=== PATIENT | female | born 1980 | race Caucasian/White ===

== ENCOUNTER 2022-11-11 20:18 | Emergency (ER) | payer OTHER, SELFPAY ==
[2022-11-11 20:30] VITALS: BP 120/63; PULSE 115; RESP 18; TEMP 36.1; O2SAT 97; BMI 22.3
--- NOTE | 2022-11-11 20:37 | ED_ITS ---
HPI - General Adult General Chief complaint: General Medical Stated complaint: L side body aches Time Seen by Provider: 11/11/22 23:50 Source: patient Mode of arrival: ambulatory Limitations: no limitations History of Present Illness HPI narrative: Patient with history of anxiety sciatica and with hospitalist for chronic left sciatica pain had lidocaine shot in the past been seen at [facility] 3 times in last 1 week comes as pain is there as medication which she taking no weakness now she is seeing numbness all over the body nonspecific complaints which is chronic, ambulatory in steady gait Related Data Previous Rx's Medication Instructions Recorded cyclobenzaprine 10 mg tablet 10 mg PO Q8H #20 tabs 11/12/22 Allergies Allergy/AdvReac Type Severity Reaction Status Date / Time No Known Allergies Allergy Verified 11/12/22 00:36 Review of Systems Review of Systems: Yes all other systems are reviewed and are negative [facility] Social History Social History Advance Directives: No Advance Directives Information Provided: Yes Physical Exam ED Vital Signs: Vital Signs - 24 hr 11/11/22 20:30 11/12/22 00:21 Temperature 97 F 97.6 F Pulse Rate 115 H 78 Respiratory Rate 18 16 Blood Pressure 120/63 113/70 Pulse Oximetry 97 99 Oxygen Delivery Method Room Air Room Air BMI result Body Mass Index 22.3 Appearance: Alert. Oriented X3. No acute distress. Anxious Eyes: PERRLA, ENT: Pharynx normal. Oral Mucosa moist Neck: Normal inspection. Neck supple. CVS: Normal heart rate and rhythm. Pulses normal. Respiratory: No respiratory distress. Equal air entry bilateral, Abdomen: Soft and nontender. Bowel sounds are present, Skin: Skin warm and dry. Normal skin color. Normal skin turgor. Extremities: No lower extremity edema. No calf tenderness back no focal midline spinal tenderness slight tenderness and left sciatic notch area SLR positive at 90 degrees on the left side no weakness Neuro: Oriented X 3. No motor deficit. No sensory deficit.No cerebellar signs , cranial nerves II-XII intact Course Course Course Narrative: RME- 42-year-old female presents for evaluation of left lower back/hip pain that radiates into her left upper leg. She describes cramping and burning pain. She reports that she has been to 3 hospitals already for this complaint. She has had x-rays done of the left hip. Medications Administered Discontinued Medications Generic Name Dose Route Start Last Admin Trade Name Ana PRN Reason Stop Dose Admin Clonazepam 1 mg 11/12/22 00:36 11/12/22 01:16 Clonazepam 1 Mg Tablet PO 11/12/22 00:37 1 mg ONCE ONE Administration Cyclobenzaprine HCl 10 mg 11/12/22 00:38 11/12/22 01:17 Cyclobenzaprine Hcl 10 Mg Tablet PO 11/12/22 00:39 10 mg ONCE ONE Administration Medical Decision Making Medical Decision Making [facility] Narrative: Patient on chronic left sciatica with no focal deficit no dermatomal sensory loss no signs of spinal cord injury patient ambulating steady gait pain seen another facility 3 times this week will give patient Flexeril and discharge patient home advised to continue her medication Discharge Plan Discharge Clinical Impression: Left sciatic nerve pain Patient Disposition: Home, Self-Care Instructions: Sciatica (ED) Additional Instructions: Continue medication including gabapentin and Klonopin Follow-up with the psychiatrist and make appoint with pain clinic if pain continue Take muscle relaxants as prescribed Contin?e con la medicaci?n que incluye gabapentina y Klonopin Shonda un seguimiento con el psiquiatra y programe malloire clara con la cl?elina del dolor si el dolor contin?a. [place] relajantes musculares seg?n lo prescrito Prescriptions: New cyclobenzaprine 10 mg tablet 10 mg PO Q8H Qty: 20 0RF Interventions: ED Discharge Assessment Last Done: 11/12/22 01:23 Discharge Date/Time: 11/12/22 01:23 Print Language: Sinhala
--- OUTSIDE RECORDS SUMMARY | 2022-11-11 23:55 | XMS_ITS | Continuity of Care Document ---
Author Name Unknown Organization [facility] Address [address] [place] [address]- Care Team Providers Care Beef Killer Name Role Phone Jonny BAUTISTA, Che Primary Care Physician [phone] [facility] 08[facility]16[facility] - 09/15/19 [facility]/[address] [address]- [facility] Attending Physician: Not on Staff, Attending MD Allergies, Adverse Reactions, Alerts No Known Medication Allergies Immunizations Given and Recorded Vaccine Date Status Refusal Reason influenza virus vaccine, inactivated 04/13/18 Give n influenza virus vaccine, inactivated 04/10/17 Give n influenza virus vaccine, inactivated 04/15/16 Give n influenza virus vaccine, inactivated 1 04/27/12 Gi ana lilia hepatitis B adult vaccine 2 09/05/13 Given hepatitis B adult vaccine 3 04/27/12 Given Hepatitis A Adult Vaccine 4 09/05/13 Given Hepatitis A Adult Vaccine 5 12/19/11 Given tetanus/diphtheria/pertussis, acel(Tdap) 04/27/12 Given tetanus-diphtheria toxoids (Td) 6 05/07/06 Given 1Admin Note: VIS11/24/2011 2Result Comment: [09/05/2013] ORDERED BY RISSA MASON MD 3Admin Note: VIS 06/26/2011 4Result Comment: [09/05/2013] ORDERED BY RISSA MASON MD [facility] 5Admin Note: GIVEN VIS 07/15/05 6Admin Note: VIS Medications cholestyramine 4 g/5.5 g oral powder for reconstitution = 4 Gm, By Mouth, 2 times a day, dissolve in water or juice- nauruan, # 60 each, 3 Refills, Maintenance, 03/02/19 9:35:40 EDT, REC Powder Start Date: 03/02/19 Status: Ordered clonazePAM 1 mg oral tablet 1 tablet = 1 mg, By Mouth, 3 times a day, 0 Refills, Maintenance, 11/29/15 16:34:56 Start Date: 11/29/15 Status: Ordered escitalopram 20 mg oral tablet 1 tablet = 20 mg, By Mouth, Daily, # 30 tablet, 0 Refills, Maintenance, 07/01/16 12:29:16, Tablet Start Date: 07/01/16 Status: Ordered gabapentin 400 mg oral capsule 400 mg, 1, capsule, By Mouth, 2 times a day, PRN back pain. To replace cyclobenzaprine., # 60 capsule, Refills 0, Tot. Refills 0, Maintenance, 08/17/19 11:33:00 EDT, Route to Pharmacy Electronically,[facility]/pharmacy #[id number], 168, cm, 06/28/19 9:52:00 EST,... Start Date: 08/17/19 Status: Ordered LaMICtal 25 mg oral tablet See Instructions, 1 tab By Mouth tab daily x 2 wks,then 25mg bid x 1wk, then 25/50mg x1wek, then 50mg bid, # 120 Doses, Refills 5, Tot. Refills 5, Maintenance, 09/02/18 14:39:28 EDT, Instructions Replace Required Details, Route to Pharmacy Electr... Start Date: 09/02/18 Status: Ordered Latuda 40 mg oral tablet 1 tablet = 40 mg, By Mouth, Daily at bedtime, # 30 tablet, 0 Refills, Maintenance, 07/01/16 12:28:47, Tablet Start Date: 07/01/16 Status: Ordered lidocaine 5% topical ointment 1 application, Topically, 2 times a day, For trigeminal neuralgia. Apply small amount, avoid contact with eyes. Span, # 50 Gm, 0 Refills, Maintenance, 07/15/18 10:28:42 EST, Ointment, 1 application Topically 2 times a day,Instr:For trigeminal neuralgi... Start Date: 07/15/18 Status: Ordered loperamide 2 mg oral capsule See Instructions, Take 1 capsule By Mouth 2 hrs before meals as needed for diarrhea. Chinese., # 100 capsule, Refills 0, Tot. Refills 0, Maintenance, 04/13/18 10:22:05 EST, Instructions Replace Required Details, Route to Pharmacy Electronically, [id number]... Start Date: 04/13/18 Status: Ordered meloxicam 7.5 mg oral tablet 1 tablet = 7.5 mg, By Mouth, Daily, # 30 tablet, 1 Refills, Maintenance, 06/28/19 10:23:00 EST, Tablet, [facility]/pharmacy #[id number], 168, cm, 06/28/19 9:52:00 EST, Height, 75, kg, 06/28/19 9:52:00 EST, Dry Weight Start Date: 06/28/19 Status: Ordered omeprazole 20 mg oral enteric coated capsule 1 capsule = 20 mg, By Mouth, Daily, Take one capsule daily 30 mins before breakfast. Chinese., # 30capsule, 3 Refills, Maintenance, 03/02/19 9:38:05 EDT, EC Capsule Start Date: 03/02/19 Stop Date: 06/30/19 Status: Ordered omeprazole 20 mg oral enteric coated capsule 1 capsule = 20 mg, By Mouth, 2 times a day, To replace tablet, # 28 capsule, 0 Refills, Maintenance, 06/23/19 17:47:00 EST, [facility], 168, cm, 03/02/19 9:08:00 EDT, Height Start Date: 06/23/19 Stop Date: 07/07/19 Status: Ordered prazosin 1 mg oral capsule Refills 0, Maintenance, 02/11/18 10:22:35 EDT Start Date: 02/11/18 Status: Ordered Problem List Condition Effective Dates Status Health Status Inform ant Abdominal pain(Confirmed) Active Allergic rhinitis(Confirmed) Active Cholecystectomy(Confirmed) Active Cholelithiasis(Confirmed) Active Chronic facial pain(Confirmed) Active Chronic female pelvic pain(Confirmed) Active Cigarette smoker(Confirmed) Active Depression(Confirmed) Active Cervical dysplasia(Confirmed) Active Esophageal reflux (GERD)(Confirmed) Active Hepatitis C antibody test po sitive, viral load negative(Confirmed) 1, 2 Active Jaw pain(Confirmed) Active Joint pain(Confirmed) Active Low back pain(Confirmed) Active Opioid dependence(Confirmed) Active Patient on methadone mainten ance therapy(Confirmed) 3 Active Psoriasis of scalp(Confirmed) Active Severe obesity(Confirmed) Active Fatty liver(Confirmed) Active Trigeminal neuralgia of left side of face(Confirmed) Active Vitiligo(Confirmed) Active 1Neg Hep C RNA 01/04/18 2with negative pcr 3stopped december, Social History Social History Type Response Smoking Status 5-9 cigarettes (betw een 1/4 to 1/2 pack)/day in last 30 days; Type: Cigarettes; Tobacco use times per day: 5-9 cigs a day; Started at age: 10; entered on: 06/28/19 Sex
--- OUTSIDE RECORDS SUMMARY | 2022-11-11 23:55 | XMS_ITS | Continuity of Care Document ---
Author Name Unknown Organization [facility] Address [address] [place] [address]- Care Team Providers Care Senior Mechanical Technician Name Role Phone Jonny BAUTISTA, Che Primary Care Physician [phone] [facility]): 11/13/20 - 12/13/20 [facility] [address] [place] [address]- Attending Physician: Admtr, Ar8 Allergies, Adverse Reactions, Alerts No Known Medication Allergies Immunizations Given and Recorded Vaccine Date Status Refusal Reason SARS-CoV-2 (COVID-19) mRNA BNT-162b2 vac 11/13/20 Given SARS-CoV-2 (COVID-19) mRNA BNT-162b2 vac 10/23/20 Given influenza virus vaccine, inactivated 04/13/18 Give n [...] Comment: [09/05/2013] ORDERED BY RISSA MASON MD [facility] 5Admin Note: GIVEN VIS 02/21/06 6Admin Note: VIS Medications clonazePAM 1 mg oral tablet 1 TABLET BY MOUTH THREE TIMES A DAY NEEDED Start Date: 09/18/20 Status: Ordered docusate sodium 100 mg oral capsule 1 capsule = 100 mg, By Mouth, 2 times a day, PRN for constipation, Take daily for constipation Malawian, # 60 capsule, 2 Refills, Maintenance, 05/08/20 16:23:00 EST, Capsule, [facility], Partial fill upon patient request if the prescription i... Start Date: 05/08/20 Status: Ordered ferrous gluconate 324 mg (37.5 mg elemental iron) oral tablet 1 tablet = 324 mg, By Mouth, 2 times a day, For anemia. Take with food. Malawian., # 100 tablet, 2 Refills, Maintenance, 03/02/20 16:57:00 EDT, Tablet, [facility], 168, cm, 11/30/19 15:43:00 EDT, Height, 75, kg, 06/28/19 9:52:00 EST, Dry We... Start Date: 03/02/20 Status: Ordered FLUoxetine 20 mg oral capsule TOME 2 C PSULAS POR V A ORAL CADA MA RAJIV Start Date: 09/18/20 Status: Ordered gabapentin 600 mg oral tablet 1 tablet = 600 mg, By Mouth, 2 times a day, For leg and back pain. May cause drowsiness. Malawian., # 60 tablet, 2 Refills, Maintenance, 08/15/20 13:50:00 EDT, [facility], Partial fill upon patient request if the prescription is for a schedule... Start Date: 08/15/20 Status: Ordered Latuda 40 mg oral tablet TOME DAVID TABLETA POR V A ORAL CADA NOCHE Start Date: 09/18/20 Status: Ordered lidocaine 5% topical film 1 patch, Topically, Daily, PRN Pain , Mild, For low back pain. Do not leave on for more than 12 hrsSpanish, # 30 patch, 0 Refills, Maintenance, 09/18/20 15:39:00 EDT, Film, [facility], Partial fill upon patient request if the prescription is... Start Date: 09/18/20 Status: Ordered meloxicam 7.5 mg oral tablet 1 tablet = 7.5 mg, By Mouth, Daily, # 30 tablet, 1 Refills, Maintenance, 06/28/19 10:23:00 EST, Tablet, [facility], 168, cm, 06/28/19 9:52:00 EST, Height, 75, kg, 06/28/19 9:52:00 EST, Dry Weight Start Date: 06/28/19 Status: Ordered MiraLax oral powder for reconstitution = 17 Gm, By Mouth, Daily, PRN constipation. dissolve in water before taking Malawian, # 527 Gm, 1 Refills, Maintenance, 05/08/20 16:24:00 EST, REC Powder, [facility], Partial fill upon patientrequest if the prescription is for a schedule II o... Start Date: 05/08/20 Status: Ordered omeprazole 20 mg oral enteric coated capsule 1 capsule = 20 mg, By Mouth, 2 times a day, To replace tablet, # 28 capsule, 0 Refills, Maintenance, 06/23/19 17:47:00 EST, [facility], 168, cm, 03/02/19 9:08:00 EDT, Height Start Date: 06/23/19 Stop Date: 07/07/19 Status: Ordered prazosin 1 mg oral capsule TOME 1 C PSULA POR V A ORAL AL ACOSTARSE Start Date: 09/18/20 Status: Ordered Problem List Condition Effective Dates [...]
--- OUTSIDE RECORDS SUMMARY | 2022-11-11 23:55 | XMS_ITS | Continuity of Care Document ---
Author Name Unknown Organization [facility] Address [address] [place] [address]- Care Team Providers Care Safety Physician Name Role Phone Jonny TECHNICAL SME, Che Primary Care Physician [phone] [facility] 03/02/20 - 04/01/20 [facility] [address] [place] [address]- Allergies, Adverse Reactions, Alerts No Known Medication [...] Comment: [09/05/2013] ORDERED BY RISSA MASON MD [facility] [place] [facility] 5Admin Note: GIVEN VIS 07/15/05 6Admin Note: VIS Medications cholestyramine 4 g/5.5 g oral powder for reconstitution = 4 Gm, By Mouth, 2 times a day, dissolve in water or juice- danish, # 60 each, 3 Refills, Maintenance, 03/02/19 [...] 12:29:16, Tablet Start Date: 07/01/16 Status: Ordered ferrous gluconate 324 mg (37.5 mg elemental iron) oral tablet 1 tablet = 324 mg, By Mouth, 2 times a day, For anemia. Take with food. Cypriot., # 100 tablet, 2 Refills, Maintenance, 03/02/20 16:57:00 EDT, Tablet, [facility]/pharmacy #1972, 168, cm, 11/30/19 15:43:00 EDT, Height, 75, kg, 06/28/19 9:52:00 EST, Dry We... Start Date: 03/02/20 Status: Ordered gabapentin 400 mg oral capsule 400 mg, 1, capsule, By Mouth, 2 times a day, PRN back pain. Cypriot., # 60 capsule, Refills 0, Tot.Refills 0, Maintenance, 02/22/20 14:44:00 EDT, Route to Pharmacy Electronically, [facility]/pharmacy #1972, 168, cm, 11/30/19 15:43:00 EDT, Height, 75, kg, 02... Start Date: 02/22/20 Status: Ordered LaMICtal 25 mg oral tablet [...] hrs before meals as needed for diarrhea. Cypriot., # 100 capsule, Refills 0, Tot. Refills 0, Maintenance, 04/13/18 10:22:05 EST, Instructions Replace Required Details, Route to Pharmacy Electronically, [id number]... Start Date: 04/13/18 Status: Ordered meloxicam 7.5 mg oral tablet 1 tablet = 7.5 mg, By Mouth, Daily, # 30 tablet, 1 Refills, Maintenance, 06/28/19 10:23:00 EST, Tablet, [facility]/pharmacy #1972, 168, cm, 06/28/19 9:52:00 EST, Height, 75, kg, 06/28/19 9:52:00 EST, Dry Weight Start Date: 06/28/19 Status: Ordered omeprazole 20 mg oral enteric coated capsule 1 capsule = 20 mg, By Mouth, Daily, Take one capsule daily 30 mins before breakfast. Cypriot., # 30capsule, 3 Refills, Maintenance, 03/02/19 9:38:05 [...]
--- OUTSIDE RECORDS SUMMARY | 2022-11-11 23:55 | XMS_ITS | Continuity of Care Document ---
Author Name Unknown Organization [facility] Address [address] [place] [address]- Care Team Providers Care Location Manager Name Role Phone Jonny BAUTISTA, Che Primary Care Physician [phone] [facility] 06[facility]07[facility]20 - 08/04/[address] [address] Attending Physician: Che Fuller NP Admitting Physician: Che Fuller NP Referring Physician: Che Fuller NP Allergies, Adverse Reactions, Alerts No Known Medication [...] Comment: [09/05/2013] ORDERED BY RISSA MASON MD [facility] 5Admin Note: GIVEN VIS 07/15/05 6Admin Note: VIS Medications clonazePAM 1 mg oral tablet 1 tablet = 1 mg, By Mouth, 3 times a day, 0 Refills, Maintenance, 11/29/15 16:34:56 Start Date: 11/29/15 Status: Ordered docusate sodium 100 mg oral capsule 1 capsule = 100 mg, By Mouth, 2 times a day, PRN for constipation, Take daily for constipation Botswanan, # 60 capsule, 2 Refills, Maintenance, 05/08/20 16:23:00 EST, Capsule, [facility]/pharmacy #1972, Partial fill upon patient request if the prescription i... Start Date: 05/08/20 Status: Ordered escitalopram 20 mg oral tablet 1 tablet = 20 mg, By Mouth, Daily, # 30 tablet, 0 Refills, Maintenance, 07/01/16 12:29:16, Tablet Start Date: 07/01/16 Status: Ordered ferrous gluconate 324 mg (37.5 mg elemental iron) oral tablet 1 tablet = 324 mg, By Mouth, 2 times a day, For anemia. Take with food. Botswanan., # 100 tablet, 2 Refills, Maintenance, 03/02/20 16:57:00 EDT, Tablet, [facility]/pharmacy #1972, 168, cm, 11/30/19 15:43:00 EDT, Height, 75, kg, 06/28/19 9:52:00 EST, Dry We... Start Date: 03/02/20 Status: Ordered gabapentin 600 mg oral tablet 1 tablet = 600 mg, By Mouth, 2 times a day, Increase in dose. For leg and back pain. May cause drowsiness. Botswanan., # 60 tablet, 2 Refills, Maintenance, 05/08/20 16:26:00 EST, [facility]/pharmacy #1972, Partial fill upon patient request if the prescription... Start Date: 05/08/20 Status: Ordered LaMICtal 25 mg oral tablet [...] hrs before meals as needed for diarrhea. Botswanan., # 100 capsule, Refills 0, Tot. Refills 0, Maintenance, 04/13/18 10:22:05 EST, Instructions Replace Required Details, Route to Pharmacy Electronically, [id number]... Start Date: 04/13/18 Status: Ordered meloxicam 7.5 mg oral tablet 1 tablet = 7.5 mg, By Mouth, Daily, # 30 tablet, 1 Refills, Maintenance, 06/28/19 10:23:00 EST, Tablet, [facility]/pharmacy #1972, 168, cm, 06/28/19 9:52:00 EST, Height, 75, kg, 06/28/19 9:52:00 EST, Dry Weight Start Date: 06/28/19 Status: Ordered MiraLax oral powder for reconstitution = 17 Gm, By Mouth, Daily, PRN constipation. dissolve in water before taking Botswanan, # 527 Gm, 1 Refills, Maintenance, 05/08/20 16:24:00 EST, REC Powder, [facility], Partial fill upon patientrequest if the prescription is for a schedule II o... Start Date: 05/08/20 Status: Ordered omeprazole 20 mg oral enteric coated capsule 1 capsule = 20 mg, By Mouth, Daily, Take one capsule daily 30 mins before breakfast. Botswanan., # 30capsule, 3 Refills, Maintenance, 03/02/19 9:38:05 [...] 10:22:35 EDT Start Date: 02/11/18 Status: Ordered Senna 8.6 mg oral tablet 17.2 mg, 2, tablet, By Mouth, Daily at bedtime, Take daily for constipation. Botswanan. for 30 days, # 60 tablet, Refills 2, Tot. Refills 2, Acute, 08/06/20 16:24:00 EDT, 05/08/20 16:24:00 EST, Route to Pharmacy Electronically, [facility]/pharmacy #1972 Tabl... Start Date: 05/08/20 Stop Date: 08/06/20 Status: Ordered Problem List Condition Effective Dates [...]
--- OUTSIDE RECORDS SUMMARY | 2022-11-11 23:55 | XMS_ITS | Continuity of Care Document ---
Author Name Unknown Organization [facility] Address [address] [place] [address]- Care Team Providers Care Driving Instructor Name Role Phone Jonny PAYABLE PROCESSOR, Che Primary Care Physician [phone] [facility]): 08/15/20 - 09/14/20 [facility] [address] [place] [address]- Allergies, Adverse Reactions, Alerts No Known Medication [...] Comment: [09/05/2013] ORDERED BY RISSA MASON MD [facility] 5Admin Note: GIVEN VIS 07/15/05 6Admin Note: VIS Medications clonazePAM 1 mg oral tablet 1 tablet = 1 mg, By Mouth, 3 times a day, 0 Refills, Maintenance, 11/29/15 16:34:56 Start Date: 11/29/15 Status: Ordered docusate sodium 100 mg oral capsule 1 capsule = 100 mg, By Mouth, 2 times a day, PRN for constipation, Take daily for constipation Turkmen, # 60 capsule, 2 Refills, Maintenance, 05/08/20 16:23:00 EST, Capsule, [facility]/pharmacy #1972, Partial fill upon patient request if [...] a day, For anemia. Take with food. Turkmen., # 100 tablet, 2 Refills, Maintenance, 03/02/20 16:57:00 EDT, Tablet, [facility], 168, cm, 11/30/19 15:43:00 EDT, Height, 75, kg, 06/28/19 9:52:00 EST, Dry We... Start Date: 03/02/20 Status: Ordered gabapentin 600 mg oral tablet 1 tablet = 600 mg, By Mouth, 2 times a day, Increase in dose. For leg and back pain. May cause drowsiness. Turkmen., # 60 tablet, 2 Refills, Maintenance, 05/08/20 16:26:00 EST, [facility], Partial fill upon patient request if the prescription... Start Date: 05/08/20 Status: Ordered gabapentin 600 mg oral tablet 1 tablet = 600 mg, By Mouth, 2 times a day, For leg and back pain. May cause drowsiness. Turkmen., # 60 tablet, 2 Refills, Maintenance, 08/15/20 13:50:00 EDT, [facility], Partial fill upon patient request if the prescription is for a schedule... Start Date: 08/15/20 Status: Ordered LaMICtal 25 mg oral tablet [...] hrs before meals as needed for diarrhea. Turkmen., # 100 capsule, Refills 0, Tot. Refills 0, Maintenance, 04/13/18 10:22:05 EST, Instructions Replace Required Details, Route to Pharmacy Electronically, [id number]... Start Date: 04/13/18 Status: Ordered meloxicam 7.5 mg oral tablet 1 tablet = 7.5 mg, By Mouth, Daily, # 30 tablet, 1 Refills, Maintenance, 06/28/19 10:23:00 EST, Tablet, [facility]/pharmacy #1972, 168, cm, 06/28/19 9:52:00 EST, Height, 75, kg, 06/28/19 9:52:00 EST, Dry Weight Start Date: 06/28/19 Status: Ordered MiraLax oral powder for reconstitution = 17 Gm, By Mouth, Daily, PRN constipation. dissolve in water before taking Turkmen, # 527 Gm, 1 Refills, Maintenance, 05/08/20 16:24:00 EST, REC Powder, [facility]/pharmacy #1972, Partial fill upon patientrequest if the prescription is for a schedule II o... Start Date: 05/08/20 Status: Ordered omeprazole 20 mg oral enteric coated capsule 1 capsule = 20 mg, By Mouth, Daily, Take one capsule daily 30 mins before breakfast. Turkmen., # 30capsule, 3 Refills, Maintenance, 03/02/19 9:38:05 EDT, EC Capsule Start Date: 03/02/19 Stop Date: 06/30/19 Status: Ordered omeprazole 20 mg oral enteric coated capsule 1 capsule = 20 mg, By Mouth, 2 times a day, To replace tablet, # 28 capsule, 0 Refills, Maintenance, 06/23/19 17:47:00 EST, [facility]/pharmacy #1972, 168, cm, 03/02/19 9:08:00 EDT, Height [...]
--- OUTSIDE RECORDS SUMMARY | 2022-11-11 23:55 | XMS_ITS | Continuity of Care Document ---
Author Name Unknown Organization [facility] Address [address] [place] [address]- Care Team Providers Care Product Lead Name Role Phone Jonny BAUTISTA, Che Primary Care Physician [place] [facility] [place] - 11/08/22 [facility]/[place] [address]- [place] Allergies, Adverse Reactions, Alerts No Known Medication Allergies Immunizations Given and Recorded Vaccine Date Status Refusal Reason tetanus/diphtheria/pertussis, acel(Tdap) 08/28/21 Given tetanus/diphtheria/pertussis, acel(Tdap) 04/27/12 Given SARS-CoV-2 (COVID-19) mRNA BNT-162b2 vac 07/02/21 Recorded SARS-CoV-2 (COVID-19) mRNA BNT-162b2 vac 11/13/20 Given [...] Hepatitis A Adult Vaccine 5 12/19/11 Given tetanus-diphtheria toxoids (Td) 6 05/07/06 Given 1Admin Note: VIS11/24/2011 2Result Comment: [09/05/2013] ORDERED BY RISSA MASON MD 3Admin Note: VIS 06/26/2011 4Result Comment: [09/05/2013] ORDERED BY RISSA MASON MD [facility] 5Admin Note: GIVEN VIS 07/15/05 6Admin Note: VIS Medications clonazePAM 1 mg oral tablet Per Psych Dr Christy Start Date: 07/24/22 Status: Ordered docusate sodium 100 mg oral capsule 1 capsule = 100 mg, By Mouth, 2 times a day, PRN for constipation, Take daily for constipation Mauritanian, # 180 capsule, 1 Refills, Maintenance, 10/17/22 16:51:00 EDT, Capsule, [facility]/pharmacy #1972, Partial fill upon patient request if the prescription... Start Date: 10/17/22 Status: Ordered ferrous gluconate 324 mg (37.5 mg elemental iron) oral tablet 1 tablet = 324 mg, By Mouth, 2 times a day, For anemia. Take with food. Mauritanian., # 100 tablet, 2 Refills, Maintenance, 03/02/20 16:57:00 EDT, Tablet, [facility]/pharmacy #1972, 168, cm, 11/30/19 15:43:00 EDT, Height, 75, kg, 06/28/19 9:52:00 EST, Dry We... Start Date: 03/02/20 Status: Ordered FLUoxetine 40 mg oral capsule Per Psych Dr Christy Start Date: 07/24/22 Status: Ordered gabapentin 600 mg oral tablet 1 tablet, By Mouth, 2 times a day, CUANDO SEA NECESARIO FOR LOW BACK PAIN AND LEFT LEG PAIN DO NOT DRIVE AFTER TAKING., # 60 tablet, 0 Refills, Maintenance, 10/14/22 7:33:00 EDT, [facility], covering for PCP, 168, cm, 07/24/22 14:0... Start Date: 10/14/22 Status: Ordered GaviLAX oral powder for reconstitution = 17 Gm, By Mouth, Daily, PRN NEEDED FOR CONSTIPATION, # 510 Gm, 5 Refills, Maintenance, 11/07/22 9:58:00 EDT, [facility] STORE [id number], 30, DISSOLVE IN WATER 17GRAMS AND TAKE BY MOUTH DAILY NEEDED FOR CONSTIPATION, 168, cm, 10/16/22 14:37:00 EDT, Height Start Date: 11/07/22 Status: Ordered Latuda 60 mg oral tablet Per Psych Dr Christy Start Date: 07/24/22 Status: Ordered lidocaine 5% topical film See Instructions, APLIQUE AL AREA AFECTADA A DIARIO CUANDO SEA NECESARIO PARA EL DOLOR NO DEJAR ENCENDIDO MAS DE 12 HORAS, # 30 patch, 11 Refills, Maintenance, 10/02/22 8:13:00 EDT, [facility] STORE [id number], 30, APLIQUE AL AREA AFECTADA A DIARIO CUANDO SEA NEC... Start Date: 10/02/22 Status: Ordered omeprazole 20 mg oral enteric coated capsule 1 capsule = 20 mg, By Mouth, 2 times a day, # 180 capsule, 0 Refills, Maintenance, 10/07/22 13:10:00 EDT, [facility]/pharmacy #1972, 168, cm, 07/24/22 14:05:00 EST, Height Start Date: 10/07/22 Status: Ordered prazosin 1 mg oral capsule Per Psych Dr Christy Start Date: 07/24/22 Status: Ordered Readi-Cat 2 oral suspension 450 mL = 9 Gm, By Mouth, 2 times a day, Mauritanian Please dispense two 450 mL bottles for a total dosethat equals 900 mLs. Drink first bottle [address] and then drink second bottle [address] scan, # 2 each, 0 Refills, Maintenance, 07/24/22... Start Date: 07/24/22 Status: Ordered Problem List Condition Confirmation Course Effective Dates Status H ealth Status Informant Abdominal pain Confirmed Active Allergic rhinitis Confirmed Active KAYLEE III (cervical intraepithelial neoplasia III) Confirmed Active Cholecystectomy Confirmed Active Cholelithiasis Confirmed Active Chronic facial pain Confirmed Active Chronic female pelvic pain Confirmed Active Cigarette smoker Confirmed Active Depression Confirmed Active Cervical dysplasia Confirmed Active Esophageal reflux (GERD) Confirmed Active Greater trochanteric bursitis of left hip Confirmed Active Hepatitis C antibody test positive, viral load negative 1, 2 Confirmed Active Jaw pain Confirmed Active Joint pain Confirmed Active Low back pain Confirmed Active Lumbar back pain with radiculopathy affecting left lower extremity Confirmed Active Opioid dependence Confirmed Active Patient on methadone maintenance therapy 3 Confirmed Active Psoriasis of scalp Confirmed Active Severe obesity Confirmed Active Fatty liver Confirmed Active Trigeminal neuralgia of left side of face Confirmed Active Vitiligo Confirmed Active 1Neg Hep C RNA 01/04/18 2with negative pcr 3stopped december, Social History Social History Type Response Smoking Status 5-9 cigarettes (betw een 1/4 to 1/2 pack)/day in last 30 days; Type: Cigarettes; Tobacco use times per day: 5-9 cigs a day; Started at age: 10; entered on: 10/16/22 Sex Patient Care team information Care Team Personnel Name: Che Fuller NP Position: S PCO Associate Professional Member Role: PCP Address: Address: [address] [place] [address]- Care Team Related Persons Name: THUY CARNES Address: home [address] [place] [address] Name: TEMI MCCLELLAN Address: home [address] [place] [address] Name: CARISSA SHOOK Address: [place] [address]
--- OUTSIDE RECORDS SUMMARY | 2022-11-11 23:55 | XMS_ITS | Continuity of Care Document ---
Author Name Unknown Organization [facility] Address Unknown Care Team Providers Care Irrigation Service Technician Name Role Phone Jonny BAUTISTA, Che Primary Care Physician [phone] [place] [facility] [place] 01/31/21 - 05/15/21 [facility] Attending Physician: Che Fuller NP Admitting Physician: Jonny BAUTISTA, Che Referring Physician: Che Fuller NP Allergies, Adverse [...] Comment: [09/05/2013] ORDERED BY RISSA MASON MD [facility] 5Admin Note: GIVEN VIS 07/15/05 6Admin Note: VIS Medications clonazePAM 1 mg oral tablet 1 TABLET BY MOUTH THREE TIMES A DAY NEEDED Start Date: 09/18/20 Status: Ordered docusate sodium 100 mg oral capsule 1 capsule = 100 mg, By Mouth, 2 times a day, PRN for constipation, Take daily for constipation Danish, # 60 capsule, 2 Refills, Maintenance, 05/08/20 16:23:00 EST, Capsule, [facility]/pharmacy #1972, Partial fill upon patient request if the prescription i... Start Date: 05/08/20 Status: Ordered ferrous gluconate 324 mg (37.5 mg elemental iron) oral tablet 1 tablet = 324 mg, By Mouth, 2 times a day, For anemia. Take with food. Danish., # 100 tablet, 2 Refills, Maintenance, 03/02/20 16:57:00 EDT, Tablet, [facility]/pharmacy #1972, 168, cm, 11/30/19 15:43:00 EDT, Height, [...] leg and back pain. May cause drowsiness. Danish., # 60 tablet, 2 Refills, Maintenance, 02/18/21 14:43:00 EDT, [facility], Partial fill upon patient request if the prescription is for... Start Date: 02/18/21 Status: Ordered Latuda 40 mg oral tablet TOME DAVID TABLETA POR V A ORAL CADA NOCHE Start Date: 09/18/20 Status: Ordered lidocaine 5% topical film 1 patch, Topically, Daily, PRN Pain , Mild, For low back pain. Do not leave on for more than 12 hrsSpanish, # 30 patch, 0 Refills, Maintenance, 02/18/21 14:45:00 EDT, Film, [facility], Partial fill upon patient request if the pre... Start Date: 02/18/21 Status: Ordered meloxicam 7.5 mg oral tablet 1 tablet = 7.5 mg, By Mouth, Daily, # 30 tablet, 1 Refills, Maintenance, 06/28/19 10:23:00 EST, Tablet, [facility]/pharmacy #1972, 168, cm, 06/28/19 9:52:00 EST, Height, 75, kg, 06/28/19 9:52:00 EST, Dry Weight Start Date: 06/28/19 Status: Ordered MiraLax oral powder for reconstitution = 17 Gm, By Mouth, Daily, PRN constipation. dissolve in water before taking Danish, # 527 Gm, 1 Refills, Maintenance, 05/08/20 [...]
--- OUTSIDE RECORDS SUMMARY | 2022-11-11 23:55 | XMS_ITS | Continuity of Care Document ---
Author Name Unknown Organization [facility] Address [address] [place] [address]- Care Team Providers Care Machine Cleaner Name Role Phone Jonny BAUTISTA, Che Primary Care Physician Encounter [facility] Date(s): 03/21/22 - 05/03/22 [facility] [address]- Attending Physician: Not on Staff, Attending MD [...] Comment: [09/05/2013] ORDERED BY RISSA MASON MD [facility] STOCK 5Admin Note: GIVEN VIS 07/15/05 6Admin Note: VIS Medications clonazePAM 1 mg oral tablet 1 TABLET BY MOUTH THREE TIMES A DAY NEEDED Start Date: 09/18/20 Status: Ordered docusate sodium 100 mg oral capsule 1 capsule = 100 mg, By Mouth, 2 times a day, PRN for constipation, Take daily for constipation Montenegrin, # 60 capsule, 2 Refills, Maintenance, 05/08/20 16:23:00 EST, Capsule, [facility]/pharmacy #1972, Partial fill upon patient request if the prescription i... Start Date: 05/08/20 Status: Ordered ferrous gluconate 324 mg (37.5 mg elemental iron) oral tablet 1 tablet = 324 mg, By Mouth, 2 times a day, For anemia. Take with food. Montenegrin., # 100 tablet, 2 Refills, Maintenance, 03/02/20 16:57:00 EDT, Tablet, [facility]/pharmacy #1972, 168, cm, 11/30/19 15:43:00 EDT, Height, 75, kg, 06/28/19 9:52:00 EST, Dry We... Start Date: 03/02/20 Status: Ordered FLUoxetine 20 mg oral capsule TOME 2 C PSULAS POR V A ORAL CADA MA RAJIV Start Date: 09/18/20 Status: Ordered gabapentin 600 mg oral tablet See Instructions, EMILY 1 TABLETA POR LA BOCA DOS VECES AL NA PARA DOLOR. PUEDE CAUSAR SOMNOLENCIA, # 60 tablet, 1 Refills, [facility], 168, cm, 11/28/21 8:03:00 EDT, Height, 69.3,kg, 04/02/20 10:33:00 EST, Dry Weight Start Date: 12/25/21 Status: Ordered Latuda 40 mg oral tablet TOME DAVID TABLETA POR V A ORAL CADA NOCHE Start Date: 09/18/20 Status: Ordered lidocaine 5% topical film 1 patch, Topically, Daily, PRN Pain , Mild, For low back pain. Do not leave on for more than 12 hrsSpanish, # 30 patch, 0 Refills, Maintenance, 02/18/21 14:45:00 EDT, Film, [facility], Partial fill upon patient request if the pre... Start Date: 02/18/21 Status: Ordered meloxicam 7.5 mg oral tablet 1 tablet = 7.5 mg, By Mouth, Daily, # 30 tablet, 1 Refills, Maintenance, 06/28/19 10:23:00 EST, Tablet, [facility]/pharmacy #1972, 168, cm, 06/28/19 9:52:00 EST, Height, 75, kg, 06/28/19 9:52:00 EST, Dry Weight Start Date: 06/28/19 Status: Ordered MiraLax oral powder for reconstitution = 17 Gm, By Mouth, Daily, PRN constipation. dissolve in water before taking Montenegrin, # 527 Gm, 1 Refills, Maintenance, 05/08/20 [...] Date: 09/18/20 Status: Ordered Problem List Condition Confirmation Course [...] at age: 10; entered on: 06/28/19 Sex Patient Care team information Care Team Personnel Name: Che Fuller NP Position: [facility] PCO Associate Professional Member Role: PCP Address: Address: [address] [place] [address]- Care Team Related Persons Name: THUY CARNES Address: home [address] [place] [address] Name: TEMI MCCLELLAN Address: home [address] [place] [address] Name: CARISSA SHOOK Address: [place] [address]
--- OUTSIDE RECORDS SUMMARY | 2022-11-11 23:55 | XMS_ITS | Continuity of Care Document ---
Author Name Unknown Organization [facility] Address [address] [place] [address]- Care Team Providers Care Box Hinge And Lock Attacher Name Role Phone Jonny BAUTISTA, Che Primary Care Physician [phone] Encounter [facility] Date(s): 03/22/19 - 07/20/19 [facility] [address] [place] [address]- Attending Physician: Leif Rhodes MD Admitting Physician: Leif Rhodes MD Allergies, Adverse Reactions, Alerts No Known [...] Comment: [09/05/2013] ORDERED BY RISSA MASON MD [facility] 5Admin Note: GIVEN VIS 07/15/05 6Admin Note: VIS Medications cholestyramine 4 g/5.5 g oral powder for reconstitution = 4 Gm, By Mouth, 2 times a day, dissolve in water or juice- chadian, # 60 each, 3 Refills, Maintenance, 03/02/19 9:35:40 EDT, REC Powder Start Date: 03/02/19 Status: Ordered clonazePAM 1 mg oral tablet 1 tablet = 1 mg, By Mouth, 3 times a day, 0 Refills, Maintenance, 11/29/15 16:34:56 Start Date: 11/29/15 Status: Ordered cyclobenzaprine 5 mg oral tablet 1 tablet = 5 mg, By Mouth, 2 times a day, for 30 days, # 60 tablet, 1 Refills, Acute 08/27/19 10:23:00 EDT, 06/28/19 10:23:00 EST, Tablet, [facility]/pharmacy #1972, 168, cm, 06/28/19 9:52:00 EST, Height, 75, kg, 06/28/19 9:52:00 EST, Dry Weight Start Date: 06/28/19 Stop Date: 08/27/19 Status: Ordered escitalopram 20 mg oral tablet 1 tablet = 20 mg, By Mouth, Daily, # 30 tablet, 0 Refills, Maintenance, 07/01/16 12:29:16, Tablet Start Date: 07/01/16 Status: Ordered LaMICtal 25 mg oral tablet [...] hrs before meals as needed for diarrhea. Jamaican., # 100 capsule, Refills 0, Tot. Refills [...] one capsule daily 30 mins before breakfast. Jamaican., # 30capsule, 3 Refills, Maintenance, 03/02/19 9:38:05 [...]
--- OUTSIDE RECORDS SUMMARY | 2022-11-11 23:55 | XMS_ITS | Continuity of Care Document ---
Author Name Unknown Organization [facility] Address [address] [place] [address]- Care Team Providers Care Heel Nailing Machine Operator Name Role Phone Jonny BAUTISTA, Che Primary Care Physician [phone] Encounter [facility] Date(s): 04/02/20 - 05/02/20 [facility] [address], [place] [address] Attending Physician: Channing Huizar Admitting Physician: AdmChanning sidhu Referring Physician: AdmtrChanning Allergies, Adverse Reactions, Alerts No Known Medication [...] Comment: [09/05/2013] ORDERED BY RISSA MASON MD [facility] STOCK 5Admin Note: GIVEN VIS 07/15/05 6Admin Note: VIS Medications cholestyramine 4 g/5.5 g oral powder for reconstitution = 4 Gm, By Mouth, 2 times a day, dissolve in water or juice- upper sorbian, # 60 each, 3 Refills, Maintenance, 03/02/19 [...] a day, For anemia. Take with food. Kuwaiti., # 100 tablet, 2 Refills, Maintenance, 03/02/20 16:57:00 EDT, Tablet, [facility]/pharmacy #1972, 168, cm, 11/30/19 15:43:00 EDT, Height, 75, kg, 06/28/19 9:52:00 EST, Dry We... Start Date: 03/02/20 Status: Ordered gabapentin 400 mg oral capsule 400 mg, 1, capsule, By Mouth, 2 times a day, PRN back pain. Kuwaiti., # 60 capsule, Refills 0, Tot.Refills 0, Maintenance, 02/22/20 14:44:00 EDT, Route to Pharmacy Electronically, [facility]/pharmacy #1972, 168, cm, 11/30/19 15:43:00 EDT, [...] hrs before meals as needed for diarrhea. Kuwaiti., # 100 capsule, Refills 0, Tot. Refills 0, Maintenance, 04/13/18 10:22:05 EST, Instructions Replace Required Details, Route to Pharmacy Electronically, [id number]... Start Date: 04/13/18 Status: Ordered meloxicam 7.5 mg oral tablet 1 tablet = 7.5 mg, By Mouth, Daily, # 30 tablet, 1 Refills, Maintenance, 06/28/19 10:23:00 EST, Tablet, [facility]/pharmacy #1972, 168, cm, 06/28/19 9:52:00 EST, Height, 75, kg, 06/28/19 9:52:00 EST, Dry Weight Start Date: 06/28/19 Status: Ordered omeprazole 20 mg oral enteric coated capsule 1 capsule = 20 mg, By Mouth, Daily, Take one capsule daily 30 mins before breakfast. Kuwaiti., # 30capsule, 3 Refills, Maintenance, 03/02/19 9:38:05 [...]
--- OUTSIDE RECORDS SUMMARY | 2022-11-11 23:55 | XMS_ITS | Continuity of Care Document ---
Author Name Unknown Organization [facility] Address [address] [place] [address]- Care Team Providers Care Railcar Mechanic Name Role Phone Jonny BAUTISTA, Che Primary Care Physician Encounter [facility] [place] Date(s): 03/08/20 - 06/07/20 [facility] [address] [place] [address]- Attending Physician: Che Fuller NP Admitting Physician: Che Fuller NP Allergies, Adverse Reactions, [...] [facility] 5Admin Note: GIVEN VIS 07/15/05 6Admin Note: VIS Medications clonazePAM 1 mg oral tablet 1 tablet = 1 mg, By Mouth, 3 times a day, 0 Refills, Maintenance, 11/29/15 16:34:56 Start Date: 11/29/15 Status: Ordered docusate sodium 100 mg oral capsule 1 capsule = 100 mg, By Mouth, 2 times a day, PRN for constipation, Take daily for constipation Andorran, # 60 capsule, 2 Refills, Maintenance, 05/08/20 16:23:00 EST, Capsule, [facility]/pharmacy #1972, Partial fill upon patient [...] a day, For anemia. Take with food. Andorran., # 100 tablet, 2 Refills, Maintenance, 03/02/20 16:57:00 EDT, Tablet, [facility]/pharmacy #1972, 168, cm, 11/30/19 15:43:00 EDT, Height, 75, kg, 06/28/19 9:52:00 EST, Dry We... Start Date: 03/02/20 Status: Ordered gabapentin 600 mg oral tablet 1 tablet = 600 mg, By Mouth, 2 times a day, Increase in dose. For leg and back pain. May cause drowsiness. Andorran., # 60 tablet, 2 Refills, Maintenance, 05/08/20 16:26:00 EST, [facility]/pharmacy #1972, Partial fill upon patient [...] hrs before meals as needed for diarrhea. Andorran., # 100 capsule, Refills 0, Tot. Refills 0, Maintenance, 04/13/18 10:22:05 EST, Instructions Replace Required Details, Route to Pharmacy Electronically, [id number]... Start Date: 04/13/18 Status: Ordered meloxicam 7.5 mg oral tablet 1 tablet = 7.5 mg, By Mouth, Daily, # 30 tablet, 1 Refills, Maintenance, 06/28/19 10:23:00 EST, Tablet, [facility]/pharmacy #1972, 168, cm, 06/28/19 9:52:00 EST, Height, 75, kg, 06/28/19 9:52:00 EST, Dry Weight Start Date: 06/28/19 Status: Ordered MiraLax oral powder for reconstitution = 17 Gm, By Mouth, Daily, PRN constipation. dissolve in water before taking Andorran, # 527 Gm, 1 Refills, Maintenance, 05/08/20 16:24:00 EST, REC Powder, [facility], Partial fill upon patientrequest if the prescription is for a schedule II o... Start Date: 05/08/20 Status: Ordered omeprazole 20 mg oral enteric coated capsule 1 capsule = 20 mg, By Mouth, Daily, Take one capsule daily 30 mins before breakfast. Andorran., # 30capsule, 3 Refills, Maintenance, 03/02/19 9:38:05 [...] Daily at bedtime, Take daily for constipation. Andorran. for 30 days, # 60 tablet, Refills 2, Tot. Refills 2, Acute, 08/06/20 16:24:00 EDT, 05/08/20 16:24:00 EST, Route to Pharmacy Electronically, [facility]/pharmacy #1972 Tabl... Start Date: 05/08/20 [...]
--- OUTSIDE RECORDS SUMMARY | 2022-11-11 23:55 | XMS_ITS | Continuity of Care Document ---
Author Name Unknown Organization [facility] Address Unknown Care Team Providers Care Picu Nurse Name Role Phone Jonny BAUTISTA, Che Primary Care Physician Encounter [facility] Date(s): 10/14/21 - 11/13/21 [facility] Allergies, Adverse Reactions, Alerts No Known Medication [...] Comment: [09/05/2013] ORDERED BY RISSA MASON MD [facility] STOCK 5Admin Note: GIVEN VIS 07/15/05 6Admin Note: VIS Medications clonazePAM 1 mg oral tablet 1 TABLET BY MOUTH THREE TIMES A DAY NEEDED Start Date: 09/18/20 Status: Ordered docusate sodium 100 mg oral capsule 1 capsule = 100 mg, By Mouth, 2 times a day, PRN for constipation, Take daily for constipation Nigerien, # 60 capsule, 2 Refills, Maintenance, 05/08/20 16:23:00 EST, Capsule, [facility]/pharmacy #1972, Partial fill upon patient request if the prescription i... Start Date: 05/08/20 Status: Ordered ferrous gluconate 324 mg (37.5 mg elemental iron) oral tablet 1 tablet = 324 mg, By Mouth, 2 times a day, For anemia. Take with food. Nigerien., # 100 tablet, 2 Refills, Maintenance, 03/02/20 16:57:00 EDT, Tablet, [facility]/pharmacy #1972, 168, cm, 11/30/19 15:43:00 [...] leg and back pain. May cause drowsiness. Nigerien., # 60 tablet, 2 Refills, Maintenance, 08/28/21 10:47:00 EDT, [facility], Partial fill upon patient request if the prescription is for... Start Date: 08/28/21 Status: Ordered Latuda 40 mg oral tablet TOME DAVID TABLETA POR V A ORAL CADA NOCHE Start Date: 09/18/20 Status: Ordered lidocaine 5% topical film 1 patch, Topically, Daily, PRN Pain , Mild, For low back pain. Do not leave on for more than 12 hrsSpanish, # 30 patch, 0 Refills, Maintenance, 02/18/21 14:45:00 EDT, Film, [facility], Partial fill upon patient request if [...] PRN constipation. dissolve in water before taking Nigerien, # 527 Gm, 1 Refills, Maintenance, 05/08/20 16:24:00 EST, REC Powder, [facility]/pharmacy #1972, Partial fill upon patientrequest if the [...] ant Abdominal pain(Confirmed) Active Allergic rhinitis(Confirmed) Active KAYLEE III (cervical intraepith elial neoplasia III)(Confirmed) Active Cholecystectomy(Confirmed) Active Cholelithiasis(Confirmed) Active Chronic facial pain(Confirmed) Active Chronic female pelvic pain(Confirmed) Active Cigarette smoker(Confirmed) Active Depression(Confirmed) Active Cervical dysplasia(Confirmed) Active Esophageal reflux (GERD)(Confirmed) Active Greater trochanteric bursiti s of left hip(Confirmed) Active Hepatitis C antibody test po sitive, viral load negative(Confirmed) 1, 2 Active Jaw pain(Confirmed) Active Joint pain(Confirmed) Active Low back pain(Confirmed) Active Lumbar back pain with radicu lopathy affecting left lower extremity(Confirmed) Active Opioid dependence(Confirmed) Active Patient on methadone [...]
--- OUTSIDE RECORDS SUMMARY | 2022-11-11 23:55 | XMS_ITS | Continuity of Care Document ---
Author Name Unknown Organization [facility] Address [address] [place] [address]- Care Team Providers Care Stopboard Assembler Name Role Phone Che Fuller NP Primary Care Physician [phone] Encounter [facility] Date(s): 06/24/19 - 09/15/19 [facility] [address] [address]- [facility] Attending Physician: Che Fuller NP Admitting Physician: [...] Comment: [09/05/2013] ORDERED BY RISSA MASON MD [facility] STOCK 5Admin Note: GIVEN VIS 07/15/05 6Admin Note: VIS Medications cholestyramine 4 g/5.5 g oral powder for reconstitution = 4 Gm, By Mouth, 2 times a day, dissolve in water or juice- burmese, # 60 each, 3 Refills, Maintenance, 03/02/19 [...] Maintenance, 08/17/19 11:33:00 EDT, Route to Pharmacy Electronically,[facility]/pharmacy #1972, 168, cm, 06/28/19 9:52:00 EST,... Start [...] hrs before meals as needed for diarrhea. Irish., # 100 capsule, Refills 0, Tot. Refills 0, Maintenance, 04/13/18 10:22:05 EST, Instructions Replace Required Details, Route to Pharmacy Electronically, [id number]... Start Date: 04/13/18 Status: Ordered meloxicam 7.5 mg oral tablet 1 tablet = 7.5 mg, By Mouth, Daily, # 30 tablet, 1 Refills, Maintenance, 06/28/19 10:23:00 EST, Tablet, [facility]/pharmacy #1972, 168, cm, 06/28/19 9:52:00 EST, Height, 75, kg, 06/28/19 9:52:00 EST, Dry Weight Start Date: 06/28/19 Status: Ordered omeprazole 20 mg oral enteric coated capsule 1 capsule = 20 mg, By Mouth, Daily, Take one capsule daily 30 mins before breakfast. Irish., # 30capsule, 3 Refills, Maintenance, 03/02/19 9:38:05 [...]
--- OUTSIDE RECORDS SUMMARY | 2022-11-11 23:55 | XMS_ITS | Continuity of Care Document ---
Author Name Unknown Organization [facility] Address Unknown Care Team Providers Care Medical Dosimetrist Name Role Phone Jonny BAUTISTA, Che Primary Care Physician Encounter [facility] Date(s): 08/28/21 - 09/27/21 [facility] Attending Physician: AdmtrChanning Allergies, Adverse Reactions, Alerts No [...] Comment: [09/05/2013] ORDERED BY RISSA MASON MD [facility] STOCK 5Admin Note: GIVEN VIS 07/15/05 6Admin Note: VIS Medications clonazePAM 1 mg oral tablet 1 TABLET BY MOUTH THREE TIMES A DAY NEEDED Start Date: 09/18/20 Status: Ordered docusate sodium 100 mg oral capsule 1 capsule = 100 mg, By Mouth, 2 times a day, PRN for constipation, Take daily for constipation Beninese, # 60 capsule, 2 Refills, Maintenance, 05/08/20 16:23:00 EST, Capsule, [facility]/pharmacy #1972, Partial fill upon patient request if the prescription i... Start Date: 05/08/20 Status: Ordered ferrous gluconate 324 mg (37.5 mg elemental iron) oral tablet 1 tablet = 324 mg, By Mouth, 2 times a day, For anemia. Take with food. Beninese., # 100 tablet, 2 Refills, Maintenance, 03/02/20 16:57:00 EDT, Tablet, [facility]/pharmacy #1972, 168, cm, 11/30/19 15:43:00 EDT, [...] leg and back pain. May cause drowsiness. Beninese., # 60 tablet, 2 Refills, Maintenance, 08/28/21 10:47:00 EDT, [facility], Partial fill upon patient request if [...] 0 Refills, Maintenance, 02/18/21 14:45:00 EDT, Film, [facility], Partial fill upon patient request if [...] PRN constipation. dissolve in water before taking Beninese, # 527 Gm, 1 Refills, Maintenance, 05/08/20 [...]
--- OUTSIDE RECORDS SUMMARY | 2022-11-11 23:55 | XMS_ITS | Continuity of Care Document ---
Author Name Unknown Organization [facility] Address [address] [place] [address]- Care Team Providers Care Toppiece Chopper Name Role Phone Jonny BAUTISTA, Che Primary Care Physician [place] [facility] [place](s): 04/03/22 - 05/03/22 [facility]/[place] [address]- Attending Physician: Admtr, Ar8 Allergies, Adverse Reactions, [...] Comment: [09/05/2013] ORDERED BY RISSA MASON MD [facility] STOCK 5Admin Note: GIVEN VIS 07/15/05 6Admin Note: VIS Medications clonazePAM 1 mg oral tablet 1 TABLET BY MOUTH THREE TIMES A DAY NEEDED Start Date: 09/18/20 Status: Ordered docusate sodium 100 mg oral capsule 1 capsule = 100 mg, By Mouth, 2 times a day, PRN for constipation, Take daily for constipation Amharic, # 60 capsule, 2 Refills, Maintenance, 05/08/20 16:23:00 EST, Capsule, [facility]/pharmacy #1972, Partial fill upon patient request if the prescription i... Start Date: 05/08/20 Status: Ordered ferrous gluconate 324 mg (37.5 mg elemental iron) oral tablet 1 tablet = 324 mg, By Mouth, 2 times a day, For anemia. Take with food. Amharic., # 100 tablet, 2 Refills, Maintenance, 03/02/20 16:57:00 EDT, Tablet, [facility]/pharmacy #1972, 168, cm, 11/30/19 15:43:00 [...] CAUSAR SOMNOLENCIA, # 60 tablet, 1 Refills, [facility], 168, cm, 11/28/21 8:03:00 EDT, [...] 0 Refills, Maintenance, 02/18/21 14:45:00 EDT, Film, [facility], Partial fill upon patient request if the pre... Start Date: 02/18/21 Status: Ordered meloxicam 7.5 mg oral tablet 1 tablet = 7.5 mg, By Mouth, Daily, # 30 tablet, 1 Refills, Maintenance, 06/28/19 10:23:00 EST, Tablet, [facility]/pharmacy #1972, 168, cm, 06/28/19 9:52:00 EST, Height, 75, kg, 06/28/19 9:52:00 EST, Dry Weight Start Date: 06/28/19 Status: Ordered MiraLax oral powder for reconstitution = 17 Gm, By Mouth, Daily, PRN constipation. dissolve in water before taking Amharic, # 527 Gm, 1 Refills, Maintenance, 05/08/20 [...] at age: 10; entered on: 06/28/19 Sex Note * Melvina Serra: PERFORM Event Display: Laboratory Results Scanned Authored Date: [id number] * Melvina Serra.: PERFORM Event Display: Laboratory Results Scanned Authored Date: [id number] Patient Care team information Care Team Personnel Name: Che Fuller NP Position: [facility] PCO Associate Professional Member Role: PCP Address: Address: [address] [place] [address]- Care Team Related Persons Name: THUY CARNES Address: home [address] [place] [address] Name: TEMI MCCLELLAN Address: home [address] [place] [id number] Name: CARISSA SHOOK Address: [place] [address]
--- OUTSIDE RECORDS SUMMARY | 2022-11-11 23:55 | XMS_ITS | Continuity of Care Document ---
Author Name Unknown Organization [facility] Address [address] [place] [address]- Care Team Providers Care Program Associate Name Role Phone Jonny BAUTISTA, Che Primary Care Physician Encounter [facility] Date(s): 06/28/19 - 07/08/19 [facility]/[address] [address]- [facility] Attending Physician: Admtr, Channing Allergies, Adverse Reactions, Alerts No Known Medication [...] Comment: [09/05/2013] ORDERED BY RISSA MASON MD [facility] STOCK 5Admin Note: GIVEN VIS 07/15/05 6Admin Note: VIS Medications cholestyramine 4 g/5.5 g oral powder for reconstitution = 4 Gm, By Mouth, 2 times a day, dissolve in water or juice- malian, # 60 each, 3 Refills, Maintenance, 03/02/19 [...] 08/27/19 10:23:00 EDT, 06/28/19 10:23:00 EST, Tablet, [facility]/pharmacy #1972, 168, cm, 06/28/19 9:52:00 EST, Height, [...] hrs before meals as needed for diarrhea. Tanzanian., # 100 capsule, Refills 0, Tot. Refills 0, Maintenance, 04/13/18 10:22:05 EST, Instructions Replace Required Details, Route to Pharmacy Electronically, [id number]... Start Date: 04/13/18 Status: Ordered meloxicam 7.5 mg oral tablet 1 tablet = 7.5 mg, By Mouth, Daily, # 30 tablet, 1 Refills, Maintenance, 06/28/19 10:23:00 EST, Tablet, [facility]/pharmacy #1972, 168, cm, 06/28/19 9:52:00 EST, Height, 75, kg, 06/28/19 9:52:00 EST, Dry Weight Start Date: 06/28/19 Status: Ordered omeprazole 20 mg oral enteric coated capsule 1 capsule = 20 mg, By Mouth, Daily, Take one capsule daily 30 mins before breakfast. Tanzanian., # 30capsule, 3 Refills, Maintenance, 03/02/19 9:38:05 EDT, EC Capsule Start Date: 03/02/19 Stop Date: 06/30/19 Status: Ordered omeprazole 20 mg oral enteric coated capsule 1 capsule = 20 mg, By Mouth, 2 times a day, To replace tablet, # 28 capsule, 0 Refills, Maintenance, 06/23/19 17:47:00 EST, [facility]/pharmacy #1972, 168, cm, 03/02/19 9:08:00 EDT, Height [...]
--- OUTSIDE RECORDS SUMMARY | 2022-11-11 23:55 | XMS_ITS | Continuity of Care Document ---
Author Name Unknown Organization [facility] Address [address] [place] [address]- Care Team Providers Care Staffing Coordinator Name Role Phone Che Fuller NP Primary Care Physician [phone] Encounter [facility] Date(s): 09/26/21 - 11/23/21 [facility] [address] [place] [address]- Attending Physician: Michele Drew MD Admitting Physician: Viki SAUCEDO, Michele Yip Allergies, Adverse Reactions, Alerts No Known Medication [...] Comment: [09/05/2013] ORDERED BY RISSA MASON MD [facility] STOCK 5Admin Note: GIVEN VIS 07/15/05 6Admin Note: VIS Medications clonazePAM 1 mg oral tablet 1 TABLET BY MOUTH THREE TIMES A DAY NEEDED Start Date: 09/18/20 Status: Ordered docusate sodium 100 mg oral capsule 1 capsule = 100 mg, By Mouth, 2 times a day, PRN for constipation, Take daily for constipation Argentine, # 60 capsule, 2 Refills, Maintenance, 05/08/20 16:23:00 EST, Capsule, [facility]/pharmacy #1972, Partial fill upon patient request if the prescription i... Start Date: 05/08/20 Status: Ordered ferrous gluconate 324 mg (37.5 mg elemental iron) oral tablet 1 tablet = 324 mg, By Mouth, 2 times a day, For anemia. Take with food. Argentine., # 100 tablet, 2 Refills, Maintenance, 03/02/20 16:57:00 EDT, Tablet, [facility]/pharmacy #1972, 168, cm, 11/30/19 15:43:00 EDT, [...] leg and back pain. May cause drowsiness. Argentine., # 60 tablet, 2 Refills, Maintenance, 08/28/21 10:47:00 EDT, [facility], Partial fill upon patient request if [...] 0 Refills, Maintenance, 02/18/21 14:45:00 EDT, Film, [facility], Partial fill upon patient request if [...] PRN constipation. dissolve in water before taking Argentine, # 527 Gm, 1 Refills, Maintenance, 05/08/20 [...]
--- OUTSIDE RECORDS SUMMARY | 2022-11-11 23:55 | XMS_ITS | Continuity of Care Document ---
Author Name Unknown Organization [facility] Address [address] [place] [address]- Care Team Providers Care Supervisor Electron Tube Processing Name Role Phone Jonny BAUTISTA, Che Primary Care Physician [phone] En[place] [facility] Date(s): 10/09/22 - 11/08/22 [facility] [address]- [place] Allergies, Adverse Reactions, Alerts No Known [...] Comment: [09/05/2013] ORDERED BY RISSA MASON MD [facility] STOCK 5Admin Note: GIVEN VIS 07/15/05 6Admin Note: VIS Medications clonazePAM 1 mg oral tablet Per Psych Dr Christy Start Date: 07/24/22 Status: Ordered docusate sodium 100 mg oral capsule 1 capsule = 100 mg, By Mouth, 2 times a day, PRN for constipation, Take daily for constipation Guyanese, # 180 capsule, 1 Refills, Maintenance, 10/17/22 16:51:00 EDT, Capsule, [facility]/pharmacy #1972, Partial fill upon patient request if the prescription... Start Date: 10/17/22 Status: Ordered ferrous gluconate 324 mg (37.5 mg elemental iron) oral tablet 1 tablet = 324 mg, By Mouth, 2 times a day, For anemia. Take with food. Guyanese., # 100 tablet, 2 Refills, Maintenance, 03/02/20 16:57:00 EDT, Tablet, [facility]/pharmacy #1972, 168, cm, 11/30/19 15:43:00 EDT, Height, [...] tablet, 0 Refills, Maintenance, 10/14/22 7:33:00 EDT, [facility], covering for PCP, 168, cm, 07/24/22 14:0... Start Date: 10/14/22 Status: Ordered GaviLAX oral powder for reconstitution = 17 Gm, By Mouth, Daily, PRN NEEDED FOR CONSTIPATION, # 510 Gm, 5 Refills, Maintenance, 11/07/22 9:58:00 EDT, [facility] STORE 97583, 30, DISSOLVE IN WATER 17GRAMS AND TAKE [...] patch, 11 Refills, Maintenance, 10/02/22 8:13:00 EDT, [facility] STORE 27865, 30, APLIQUE AL AREA AFECTADA A DIARIO CUANDO SEA NEC... Start Date: 10/02/22 Status: Ordered omeprazole 20 mg oral enteric coated capsule 1 capsule = 20 mg, By Mouth, 2 times a day, # 180 capsule, 0 Refills, Maintenance, 10/07/22 13:10:00 EDT, [facility]/pharmacy #1972, 168, cm, 07/24/22 14:05:00 EST, Height Start Date: 10/07/22 Status: Ordered prazosin 1 mg oral capsule Per Psych Dr Christy Start Date: 07/24/22 Status: Ordered Readi-Cat 2 oral suspension 450 mL = 9 Gm, By Mouth, 2 times a day, Guyanese Please dispense two 450 mL bottles for [...] Associate Professional Member Role: PCP Address: Address: [address] [place] [address]- Care Team Related Persons Name: THUY CARNES Address: home [address] [place] [address] Name: TEMI MCCLELLAN Address: home [address] [place] [address] Name: CARISSA SHOOK Address: [place] [address]
--- OUTSIDE RECORDS SUMMARY | 2022-11-11 23:55 | XMS_ITS | Continuity of Care Document ---
Author Name Unknown Organization [facility] Address Unknown Care Team Providers Care Gate Manager Name Role Phone Jonny BAUTISTA, Che Primary Care Physician Encounter [facility] Date(s): 03/04/21 - 04/03/21 [facility] Allergies, Adverse Reactions, Alerts No Known Medication [...] Comment: [09/05/2013] ORDERED BY RISSA MASON MD [facility] 5Admin Note: GIVEN VIS 07/15/05 [...] 2 Refills, Maintenance, 05/08/20 16:23:00 EST, Capsule, [facility]/pharmacy #1972, Partial fill upon patient request if the prescription i... Start Date: 05/08/20 Status: Ordered ferrous gluconate 324 mg (37.5 mg elemental iron) oral tablet 1 tablet = 324 mg, By Mouth, 2 times a day, For anemia. Take with food. Malawian., # 100 tablet, 2 Refills, Maintenance, 03/02/20 16:57:00 EDT, Tablet, [facility]/pharmacy #1972, 168, cm, 11/30/19 15:43:00 EDT, [...] Malawian., # 60 tablet, 2 Refills, Maintenance, 02/18/21 14:43:00 EDT, [facility], Partial fill upon patient request if [...] 0 Refills, Maintenance, 02/18/21 14:45:00 EDT, Film, [facility], Partial fill upon patient request if the pre... Start Date: 02/18/21 Status: Ordered meloxicam 7.5 mg oral tablet 1 tablet = 7.5 mg, By Mouth, Daily, # 30 tablet, 1 Refills, Maintenance, 06/28/19 10:23:00 EST, Tablet, [facility]/pharmacy #1972, 168, cm, 06/28/19 9:52:00 EST, Height, 75, kg, 06/28/19 9:52:00 EST, Dry Weight Start Date: 06/28/19 Status: Ordered MiraLax oral powder for reconstitution = 17 Gm, By Mouth, Daily, PRN constipation. dissolve in water before taking Malawian, # 527 Gm, 1 Refills, Maintenance, 05/08/20 16:24:00 EST, REC Powder, [facility]/pharmacy #1972, Partial fill upon patientrequest if the [...]
--- OUTSIDE RECORDS SUMMARY | 2022-11-11 23:55 | XMS_ITS | Continuity of Care Document ---
Author Name Unknown Organization [facility] Address [address] [place] [address]- Care Team Providers Care Pony Rougher Name Role Phone Che Fuller NP Primary Care Physician [phone] Encounter [facility] Date(s): 11/28/21 - 12/28/21 [facility] [address] [place] [address]- Attending Physician: Channing Huizar Admitting Physician: Admtr, Ar8 Referring Physician: Admtr, Ar8 Allergies, Adverse Reactions, Alerts [...] Comment: [09/05/2013] ORDERED BY RISSA MASON MD [facility] STOCK 5Admin Note: GIVEN VIS 07/15/05 6Admin Note: VIS Medications clonazePAM 1 mg oral tablet 1 TABLET BY MOUTH THREE TIMES A DAY NEEDED Start Date: 09/18/20 Status: Ordered docusate sodium 100 mg oral capsule 1 capsule = 100 mg, By Mouth, 2 times a day, PRN for constipation, Take daily for constipation Trinidadian, # 60 capsule, 2 Refills, Maintenance, 05/08/20 16:23:00 EST, Capsule, [facility]/pharmacy #1972, Partial fill upon patient request if the prescription i... Start Date: 05/08/20 Status: Ordered ferrous gluconate 324 mg (37.5 mg elemental iron) oral tablet 1 tablet = 324 mg, By Mouth, 2 times a day, For anemia. Take with food. Trinidadian., # 100 tablet, 2 Refills, Maintenance, 03/02/20 16:57:00 EDT, Tablet, [facility]/pharmacy #1972, 168, cm, 11/30/19 15:43:00 EDT, Height, 75, kg, 06/28/19 9:52:00 EST, Dry We... Start Date: 03/02/20 Status: Ordered FLUoxetine 20 mg oral capsule TOME 2 C PSULAS POR V A ORAL CADA MA RAIJV Start Date: 09/18/20 Status: Ordered gabapentin 600 mg oral tablet See Instructions, EMILY 1 TABLETA POR LA BOCA DOS VECES AL NA PARA DOLOR. PUEDE CAUSAR SOMNOLENCIA, # 60 tablet, 1 Refills, [facility], 168, cm, 11/28/21 8:03:00 EDT, Height, [...] 0 Refills, Maintenance, 02/18/21 14:45:00 EDT, Film, [facility], Partial fill upon patient request if the pre... Start Date: 02/18/21 Status: Ordered meloxicam 7.5 mg oral tablet 1 tablet = 7.5 mg, By Mouth, Daily, # 30 tablet, 1 Refills, Maintenance, 06/28/19 10:23:00 EST, Tablet, [facility]/pharmacy #1972, 168, cm, 06/28/19 9:52:00 EST, Height, 75, kg, 06/28/19 9:52:00 EST, Dry Weight Start Date: 06/28/19 Status: Ordered MiraLax oral powder for reconstitution = 17 Gm, By Mouth, Daily, PRN constipation. dissolve in water before taking Trinidadian, # 527 Gm, 1 Refills, Maintenance, 05/08/20 16:24:00 EST, REC Powder, [facility]/pharmacy #1972, Partial fill upon patientrequest if [...]
--- OUTSIDE RECORDS SUMMARY | 2022-11-11 23:55 | XMS_ITS | Continuity of Care Document ---
Author Name Unknown Organization [facility] Address [address] [place] [address]- Care Team Providers Care Communications Analyst Name Role Phone Jonny BAUTISTA, Che Primary Care Physician Encounter [facility] Date(s): 11/02/20 - 12/05/20 [facility] [address] [place] [address]- Attending Physician: Pa Gracia MD Admitting Physician: Pa Gracia MD Allergies, Adverse Reactions, Alerts No Known [...] Comment: [09/05/2013] ORDERED BY RISSA MASON MD [facility] 5Admin Note: GIVEN VIS 07/15/05 6Admin Note: VIS Medications clonazePAM 1 mg oral tablet 1 TABLET BY MOUTH THREE TIMES A DAY NEEDED Start Date: 09/18/20 Status: Ordered docusate sodium 100 mg oral capsule 1 capsule = 100 mg, By Mouth, 2 times a day, PRN for constipation, Take daily for constipation Micronesian, # 60 capsule, 2 Refills, Maintenance, 05/08/20 16:23:00 EST, Capsule, [facility]/pharmacy #1972, Partial fill upon patient request if the prescription i... Start Date: 05/08/20 Status: Ordered ferrous gluconate 324 mg (37.5 mg elemental iron) oral tablet 1 tablet = 324 mg, By Mouth, 2 times a day, For anemia. Take with food. Micronesian., # 100 tablet, 2 Refills, Maintenance, 03/02/20 [...] leg and back pain. May cause drowsiness. Micronesian., # 60 tablet, 2 Refills, Maintenance, 08/15/20 [...] PRN constipation. dissolve in water before taking Micronesian, # 527 Gm, 1 Refills, Maintenance, 05/08/20 [...]
--- OUTSIDE RECORDS SUMMARY | 2022-11-11 23:55 | XMS_ITS | Continuity of Care Document ---
Author Name Unknown Organization [facility] Address [address] [place] [address]- Care Team Providers Care Container Packer Operator Name Role Phone Jonny BAUTISTA, Che Primary Care Physician [phone] Encounter [facility] Date(s): 08/17/19 - 08/27/19 [facility]/[address] [address]- [facility] Attending Physician: Admtr, Channing Allergies, Adverse Reactions, [...] a day, dissolve in water or juice- english, # 60 each, 3 Refills, Maintenance, 03/02/19 [...] Maintenance, 08/17/19 11:33:00 EDT, Route to Pharmacy Electronically,[facility]/pharmacy #1972, 168, cm, 06/28/19 9:52:00 EST,... [...] hrs before meals as needed for diarrhea. Danish., # 100 capsule, Refills 0, Tot. Refills 0, Maintenance, 04/13/18 10:22:05 EST, Instructions Replace Required Details, Route to Pharmacy Electronically, [id number]... Start Date: 04/13/18 Status: Ordered meloxicam 7.5 mg oral tablet 1 tablet = 7.5 mg, By Mouth, Daily, # 30 tablet, 1 Refills, Maintenance, 06/28/19 10:23:00 EST, Tablet, [facility]/pharmacy #1972, 168, cm, 06/28/19 9:52:00 EST, Height, 75, kg, 06/28/19 9:52:00 EST, Dry Weight Start Date: 06/28/19 Status: Ordered omeprazole 20 mg oral enteric coated capsule 1 capsule = 20 mg, By Mouth, Daily, Take one capsule daily 30 mins before breakfast. Danish., # 30capsule, 3 Refills, Maintenance, 03/02/19 9:38:05 [...]
--- OUTSIDE RECORDS SUMMARY | 2022-11-11 23:55 | XMS_ITS | Continuity of Care Document ---
Author Name Unknown Organization [facility] Address Unknown Care Team Providers Care Net Programmer Analyst Name Role Phone Che Fuller NP Primary Care Physician Encounter [facility] Date(s): 02/05/21 - 03/07/21 [facility] Allergies, Adverse Reactions, Alerts No Known Medication [...] Comment: [09/05/2013] ORDERED BY RISSA MASON MD [facility] STOCK 5Admin Note: GIVEN VIS 07/15/05 6Admin Note: VIS Medications clonazePAM 1 mg oral tablet 1 TABLET BY MOUTH THREE TIMES A DAY NEEDED Start Date: 09/18/20 Status: Ordered docusate sodium 100 mg oral capsule 1 capsule = 100 mg, By Mouth, 2 times a day, PRN for constipation, Take daily for constipation Gibraltarian, # 60 capsule, 2 Refills, Maintenance, 05/08/20 16:23:00 EST, Capsule, [facility]/pharmacy #1972, Partial fill upon patient request if the prescription i... Start Date: 05/08/20 Status: Ordered ferrous gluconate 324 mg (37.5 mg elemental iron) oral tablet 1 tablet = 324 mg, By Mouth, 2 times a day, For anemia. Take with food. Gibraltarian., # 100 tablet, 2 Refills, Maintenance, 03/02/20 16:57:00 EDT, Tablet, [facility]/pharmacy #1972, 168, cm, 11/30/19 15:43:00 [...] leg and back pain. May cause drowsiness. Gibraltarian., # 60 tablet, 2 Refills, Maintenance, 02/18/21 14:43:00 EDT, [facility], Partial fill upon patient request if [...] Refills, Maintenance, 02/18/21 14:45:00 EDT, Film, [facility], Partial fill upon patient request if the pre... Start Date: 02/18/21 Status: Ordered meloxicam 7.5 mg oral tablet 1 tablet = 7.5 mg, By Mouth, Daily, # 30 tablet, 1 Refills, Maintenance, 06/28/19 10:23:00 EST, Tablet, [facility]/pharmacy #1972, 168, cm, 06/28/19 9:52:00 EST, Height, 75, kg, 06/28/19 9:52:00 EST, Dry Weight Start Date: 06/28/19 Status: Ordered MiraLax oral powder for reconstitution = 17 Gm, By Mouth, Daily, PRN constipation. dissolve in water before taking Gibraltarian, # 527 Gm, 1 Refills, Maintenance, 05/08/20 16:24:00 EST, REC Powder, [facility]/pharmacy #1972, Partial fill upon patientrequest if the prescription is for a schedule II o... Start Date: 05/08/20 Status: Ordered naproxen 500 mg oral delayed release tablet 1 tablet = 500 mg, By Mouth, 2 times a day, with food do not take with other NSAIDs, # 60 tablet, 0Refills, Acute 03/20/21 14:45:00 EDT, 02/18/21 14:44:00 EDT, EC Tablet, [facility], Partial fill upon patient request if the presc... Start Date: 02/18/21 Stop Date: 03/20/21 Status: Ordered omeprazole 20 mg oral enteric [...]
--- OUTSIDE RECORDS SUMMARY | 2022-11-11 23:55 | XMS_ITS | Continuity of Care Document ---
Author Name Unknown Organization [facility] Address [address] [place] [address]- Care Team Providers Care Marine Diesel Technician Name Role Phone Che Fuller NP Primary Care Physician [phone] [place] [facility] [place] 08[place]25/21 [facility] [address] [place] [address]- Encounter Diagnosis Acute exacerbation of chronic low back pain(Discharge Diagnosis) - 08/18/21 Attending Physician: Sebastian Chacon DO Referring Physician: Che Fuller NP Allergies, Adverse [...] Comment: [09/05/2013] ORDERED BY RISSA MASON MD [facility] 5Admin Note: GIVEN VIS 07/15/05 6Admin Note: VIS Medications clonazePAM 1 mg oral tablet 1 TABLET BY MOUTH THREE TIMES A DAY NEEDED Start Date: 09/18/20 Status: Ordered cyclobenzaprine 10 mg oral tablet 10 mg, 1, tablet, By Mouth, 3 times a day, # 30 tablet, Refills 0, Tot. Refills 0, Acute 08/31/21 16:11:00 EDT, 08/18/21 16:10:00 EDT, [facility] upon patient request if the prescription is for a... Start Date: 08/18/21 Stop Date: 08/31/21 Status: Ordered docusate sodium 100 mg oral capsule 1 capsule = 100 mg, By Mouth, 2 times a day, PRN for constipation, Take daily for constipation [place] Islander, # 60 capsule, 2 Refills, Maintenance, 05/08/20 16:23:00 EST, [facility] upon patient request if the prescription i... Start Date: 05/08/20 Status: Ordered ferrous gluconate 324 mg (37.5 mg elemental iron) oral tablet 1 tablet = 324 mg, By Mouth, 2 times a day, For anemia. Take with food. [place] Islander., # 100 tablet, 2 Refills, Maintenance, 03/02/20 16:57:00 EDT, Tablet, [facility]/pharmacy #1972, 168, cm, 11/30/19 15:43:00 [...] leg and back pain. May cause drowsiness. [place] Islander., # 60 tablet, 2 Refills, Maintenance, 02/18/21 14:43:00 EDT, [facility], Partial fill upon patient request [...] 0 Refills, Maintenance, 02/18/21 14:45:00 EDT, Film, [facility], Partial fill upon patient request if the pre... Start Date: 02/18/21 Status: Ordered meloxicam 7.5 mg oral tablet 1 tablet = 7.5 mg, By Mouth, Daily, # 30 tablet, 1 Refills, Maintenance, 06/28/19 10:23:00 EST, Tablet, [facility]/pharmacy #1972, 168, cm, 06/28/19 9:52:00 EST, Height, 75, kg, 06/28/19 9:52:00 EST, Dry Weight Start Date: 06/28/19 Status: Ordered MiraLax oral powder for reconstitution = 17 Gm, By Mouth, Daily, PRN constipation. dissolve in water before taking [place] Islander, # 527 Gm, 1 Refills, Maintenance, 05/08/20 [...] RNA 01/04/18 2with negative pcr 3stopped december, Diagnosis Diagnosis Type Effective Dates Health Status Clinical Service Informant Acute exacerbation of chronic low back pain Discharge Diagnosis 08/18/21 Vital Signs Most recent to oldest [Reference Range]: 1 Height 168 cm (08/18/21 2:17 PM) Oxygen Saturation [94-100 %] 100 % (08/18/21 2:17 PM) Pulse Rate [55-90 bpm] 81 bpm (08/18/21 2:17 PM) Blood Pressure [90-138/55-84 mm Hg] 91/5 2mm Hg (08/18/21 2:17 PM) Temperature [96.8-100.4 DegF] 98.4 DegF (08/18/21 2:17 PM) Mode of Delivery (Oxygen) Room air (08/18/21 2:17 PM) Blood pressure sites Arm, right (08/18/21 2:17 PM) Temperature Route Temporal (08/18/21 2:17 PM) Social History Social History Type Response Smoking Status 5-9 cigarettes (betw een 1/4 to 1/2 pack)/day in last 30 days; Type: Cigarettes; Tobacco use times per day: 5-9 cigs a day; Started at age: 10; entered on: 06/28/19 Sex
--- OUTSIDE RECORDS SUMMARY | 2022-11-11 23:55 | XMS_ITS | Continuity of Care Document ---
Author Name Unknown Organization [facility] Address [address] [place] [id number]- Care Team Providers Care Lighting Director Name Role Phone Jonny BAUTISTA, Che Primary Care Physician [facility]counter [facility] Date(s): 06/18/20 - 07/20/[address] [address] Attending Physician: Che Fuller NP Admitting Physician: [...] [09/05/2013] ORDERED BY RISSA MASON MD [facility] [place] 5Admin Note: [...] PRN for constipation, Take daily for constipation Singaporean, # 60 capsule, 2 Refills, Maintenance, 05/08/20 16:23:00 EST, Capsule, [facility]/pharmacy #1972, Partial fill upon patient [...] a day, For anemia. Take with food. Singaporean., # 100 tablet, 2 Refills, Maintenance, 03/02/20 16:57:00 EDT, Tablet, [facility]/pharmacy #1972, 168, cm, 11/30/19 15:43:00 EDT, Height, 75, kg, 06/28/19 9:52:00 EST, Dry We... Start Date: 03/02/20 Status: Ordered gabapentin 600 mg oral tablet 1 tablet = 600 mg, By Mouth, 2 times a day, Increase in dose. For leg and back pain. May cause drowsiness. Singaporean., # 60 tablet, 2 Refills, Maintenance, 05/08/20 16:26:00 EST, [facility]/pharmacy #1972, Partial fill upon patient [...] hrs before meals as needed for diarrhea. Singaporean., # 100 capsule, Refills 0, Tot. Refills 0, Maintenance, 04/13/18 10:22:05 EST, Instructions Replace Required Details, Route to Pharmacy Electronically, [id number]... Start Date: 04/13/18 Status: Ordered meloxicam 7.5 mg oral tablet 1 tablet = 7.5 mg, By Mouth, Daily, # 30 tablet, 1 Refills, Maintenance, 06/28/19 10:23:00 EST, Tablet, [facility]/pharmacy #1972, 168, cm, 06/28/19 9:52:00 EST, Height, 75, kg, 06/28/19 9:52:00 EST, Dry Weight Start Date: 06/28/19 Status: Ordered MiraLax oral powder for reconstitution = 17 Gm, By Mouth, Daily, PRN constipation. dissolve in water before taking Singaporean, # 527 Gm, 1 Refills, Maintenance, 05/08/20 16:24:00 EST, REC Powder, [facility], Partial fill upon patientrequest if the prescription is for a schedule II o... Start Date: 05/08/20 Status: Ordered omeprazole 20 mg oral enteric coated capsule 1 capsule = 20 mg, By Mouth, Daily, Take one capsule daily 30 mins before breakfast. Singaporean., # 30capsule, 3 Refills, Maintenance, 03/02/19 9:38:05 [...] Daily at bedtime, Take daily for constipation. Singaporean. for 30 days, # 60 tablet, Refills 2, Tot. Refills 2, Acute, 08/06/20 16:24:00 EDT, 05/08/20 16:24:00 EST, Route to Pharmacy Electronically, [facility] Tabl... Start Date: 05/08/20 Stop Date: [...]
--- OUTSIDE RECORDS SUMMARY | 2022-11-11 23:55 | XMS_ITS | Continuity of Care Document ---
Author Name Unknown Organization [facility] Address [address] [place] [address]- Care Team Providers Care Wood Technologist Name Role Phone Jonny COTTON CHOPPER, Che Primary Care Physician Encounter [facility] Date(s): 08/07/20 - 09/06/20 [facility] [address] [place] [address]- Allergies, Adverse Reactions, Alerts No Known Medication [...] Comment: [09/05/2013] ORDERED BY RISSA MASON MD [facility] 5Admin Note: GIVEN VIS 07/15/05 6Admin Note: VIS Medications clonazePAM 1 mg oral tablet 1 tablet = 1 mg, By Mouth, 3 times a day, 0 Refills, Maintenance, 11/29/15 16:34:56 Start Date: 11/29/15 Status: Ordered docusate sodium 100 mg oral capsule 1 capsule = 100 mg, By Mouth, 2 times a day, PRN for constipation, Take daily for constipation Monegasque, # 60 capsule, 2 Refills, Maintenance, 05/08/20 16:23:00 EST, Capsule, [facility]/pharmacy #1972, Partial fill upon [...] a day, For anemia. Take with food. Monegasque., # 100 tablet, 2 Refills, Maintenance, 03/02/20 16:57:00 EDT, Tablet, [facility], 168, cm, 11/30/19 15:43:00 EDT, Height, 75, kg, 06/28/19 9:52:00 EST, Dry We... Start Date: 03/02/20 Status: Ordered gabapentin 600 mg oral tablet 1 tablet = 600 mg, By Mouth, 2 times a day, Increase in dose. For leg and back pain. May cause drowsiness. Monegasque., # 60 tablet, 2 Refills, Maintenance, 05/08/20 16:26:00 EST, [facility], Partial fill upon patient request if the prescription... Start Date: 05/08/20 Status: Ordered gabapentin 600 mg oral tablet 1 tablet = 600 mg, By Mouth, 2 times a day, For leg and back pain. May cause drowsiness. Monegasque., # 60 tablet, 2 Refills, Maintenance, 08/15/20 [...] hrs before meals as needed for diarrhea. Monegasque., # 100 capsule, Refills 0, Tot. Refills 0, Maintenance, 04/13/18 10:22:05 EST, Instructions Replace Required Details, Route to Pharmacy Electronically, [id number]... Start Date: 04/13/18 Status: Ordered meloxicam 7.5 mg oral tablet 1 tablet = 7.5 mg, By Mouth, Daily, # 30 tablet, 1 Refills, Maintenance, 06/28/19 10:23:00 EST, Tablet, [facility]/pharmacy #1972, 168, cm, 06/28/19 9:52:00 EST, Height, 75, kg, 06/28/19 9:52:00 EST, Dry Weight Start Date: 06/28/19 Status: Ordered MiraLax oral powder for reconstitution = 17 Gm, By Mouth, Daily, PRN constipation. dissolve in water before taking Monegasque, # 527 Gm, 1 Refills, Maintenance, 05/08/20 16:24:00 EST, REC Powder, [facility]/pharmacy #1972, Partial fill upon patientrequest if the prescription is for a schedule II o... Start Date: 05/08/20 Status: Ordered omeprazole 20 mg oral enteric coated capsule 1 capsule = 20 mg, By Mouth, Daily, Take one capsule daily 30 mins before breakfast. Monegasque., # 30capsule, 3 Refills, Maintenance, 03/02/19 9:38:05 EDT, EC Capsule Start Date: 03/02/19 Stop Date: 06/30/19 Status: Ordered omeprazole 20 mg oral enteric coated capsule 1 capsule = 20 mg, By Mouth, 2 times a day, To replace tablet, # 28 capsule, 0 Refills, Maintenance, 06/23/19 17:47:00 EST, [facility]/pharmacy #1972, 168, cm, 03/02/19 9:08:00 EDT, Height [...]
--- OUTSIDE RECORDS SUMMARY | 2022-11-11 23:55 | XMS_ITS | Continuity of Care Document ---
Author Name Unknown Organization [facility] Address [address] [place] [address]- Care Team Providers Care Tailor Garment Fitter Name Role Phone Jonny BAUTISTA, Che Primary Care Physician [phone] Encounter [facility] Date(s): 09/06/19 - 10/07/19 [facility] [place] [address]- [facility] Attending Physician: Pb SAUCEDO, Tonja Murry Allergies, Adverse Reactions, Alerts No Known Medication [...] Comment: [09/05/2013] ORDERED BY RISSA MASON MD [facility] [place] STOCK 5Admin Note: GIVEN VIS 07/15/05 6Admin Note: VIS Medications cholestyramine 4 g/5.5 g oral powder for reconstitution = 4 Gm, By Mouth, 2 times a day, dissolve in water or juice- barbadian, # 60 each, 3 Refills, Maintenance, 03/02/19 [...] Maintenance, 08/17/19 11:33:00 EDT, Route to Pharmacy Electronically,[facility]1972, 168, cm, 06/28/19 9:52:00 EST,... Start [...] hrs before meals as needed for diarrhea. Belarusian., # 100 capsule, Refills 0, Tot. Refills 0, Maintenance, 04/13/18 10:22:05 EST, Instructions Replace Required Details, Route to Pharmacy Electronically, [id number]... Start Date: 04/13/18 Status: Ordered meloxicam 7.5 mg oral tablet 1 tablet = 7.5 mg, By Mouth, Daily, # 30 tablet, 1 Refills, Maintenance, 06/28/19 10:23:00 EST, Tablet, [facility]/pharmacy #1972, 168, cm, 06/28/19 9:52:00 EST, Height, 75, kg, 06/28/19 9:52:00 EST, Dry Weight Start Date: 06/28/19 Status: Ordered omeprazole 20 mg oral enteric coated capsule 1 capsule = 20 mg, By Mouth, Daily, Take one capsule daily 30 mins before breakfast. Belarusian., # 30capsule, 3 Refills, Maintenance, 03/02/19 9:38:05 [...]
--- OUTSIDE RECORDS SUMMARY | 2022-11-11 23:56 | XMS_ITS | Continuity of Care Document ---
Author Name Unknown Organization [facility] Address [address] [place] [address]- Care Team Providers Care Sleeping Car Conductor Name Role Phone Jonny BAUTISTA, Che Primary Care Physician Encounter [facility] [place] Date(s): 08/18/21 - 09/17/21 [facility] [address] [place] [address]- Attending Physician: Channing Huizar Admitting Physician: AdmtrChanning Referring Physician: Admtr, ArDamion Allergies, Adverse Reactions, Alerts No Known Medication [...] 2 Refills, Maintenance, 05/08/20 16:23:00 EST, Capsule, [facility]/pharmacy #1972, Partial fill upon patient request if the prescription i... Start Date: 05/08/20 Status: Ordered ferrous gluconate 324 mg (37.5 mg elemental iron) oral tablet 1 tablet = 324 mg, By Mouth, 2 times a day, For anemia. Take with food. Turkmen., # 100 tablet, 2 Refills, Maintenance, 03/02/20 16:57:00 EDT, Tablet, [facility]/pharmacy #1972, 168, cm, 11/30/19 15:43:00 [...] Turkmen., # 60 tablet, 2 Refills, Maintenance, 08/28/21 10:47:00 EDT, [facility], Partial fill upon [...] 0 Refills, Maintenance, 02/18/21 14:45:00 EDT, Film, [facility], Partial fill upon patient request if the pre... Start Date: 02/18/21 Status: Ordered meloxicam 7.5 mg oral tablet 1 tablet = 7.5 mg, By Mouth, Daily, # 30 tablet, 1 Refills, Maintenance, 06/28/19 10:23:00 EST, Tablet, [facility]/pharmacy #1972, 168, cm, 06/28/19 9:52:00 EST, Height, 75, kg, 06/28/19 9:52:00 EST, Dry Weight Start Date: 06/28/19 Status: Ordered MiraLax oral powder for reconstitution = 17 Gm, By Mouth, Daily, PRN constipation. dissolve in water before taking Turkmen, # 527 Gm, 1 Refills, Maintenance, 05/08/20 16:24:00 EST, REC Powder, [facility]/pharmacy #1972, Partial fill upon patientrequest if [...]
--- OUTSIDE RECORDS SUMMARY | 2022-11-11 23:56 | XMS_ITS | Continuity of Care Document ---
Author Name Unknown Organization [facility] Address [address] [place] [address]- Care Team Providers Care Jammer Operator Name Role Phone Jonny BAUTISTA, Che Primary Care Physician [phone] [place] [facility] [place] - 09/13/22 [facility] [address]- Attending Physician: Admtr, Ar8 Allergies, Adverse Reactions, [...] ORDERED BY RISSA MASON [place] [facility] [place] 5Admin Note: GIVEN VIS 07/15/05 6Admin Note: VIS Medications clonazePAM 1 mg oral tablet Per Psych Dr Christy Start Date: 07/24/22 Status: Ordered docusate sodium 100 mg oral capsule 1 capsule = 100 mg, By Mouth, 2 times a day, PRN for constipation, Take daily for constipation Swazi, # 60 capsule, 2 Refills, Maintenance, 07/24/22 14:30:00 EST, Capsule, [facility], Partial fill upon patient request if the prescription i... Start Date: 07/24/22 Status: Ordered ferrous gluconate 324 mg (37.5 mg elemental iron) oral tablet 1 tablet = 324 mg, By Mouth, 2 times a day, For anemia. Take with food. Swazi., # 100 tablet, 2 Refills, Maintenance, 03/02/20 [...] TAKING., # 60 tablet, 0 Refills, Maintenance, 08/21/22 8:07:00 EDT, [id number], 168, cm, 07/24/22 14:05:00 EST, Height Start Date: 08/21/22 Status: Ordered Latuda 60 mg oral tablet Per Psych Dr Chirsty Start Date: 07/24/22 Status: Ordered lidocaine 5% topical film 1 patch, Topically, Daily, PRN Pain , Mild, For low back pain. Do not leave on for more than 12 hrsSpanish, # 30 patch, 0 Refills, Maintenance, 07/24/22 14:31:00 EST, Film, [facility], Partial fill upon patient request if the prescription is... Start Date: 07/24/22 Status: Ordered MiraLax oral powder for reconstitution = 17 Gm, By Mouth, Daily, PRN constipation. dissolve in water before taking Swazi, # 527 Gm, 2 Refills, Maintenance, 07/24/22 14:30:00 EST, REC Powder, [facility], Partial fill upon patientrequest if the prescription is for a schedule II o... Start Date: 07/24/22 Status: Ordered omeprazole 20 mg oral enteric coated capsule 1 capsule = 20 mg, By Mouth, 2 times a day, To replace tablet, # 60 capsule, 2 Refills, Maintenance, 07/24/22 14:30:00 EST, [facility], 168, cm, 07/24/22 14:05:00 EST, Height Start Date: 07/24/22 Status: Ordered prazosin 1 mg oral capsule Per Psych Dr Christy Start Date: 07/24/22 Status: Ordered Readi-Cat 2 oral suspension 450 mL = 9 Gm, By Mouth, 2 times a day, Swazi Please dispense two 450 mL bottles for [...] day; Started at age: 10; entered on: 07/24/22 Sex Note * Melvina Serra.: PERFORM Event Display: Laboratory Results Scanned Authored Date: [id number] * Melvina Serra: PERFORM Event Display: Laboratory Results Scanned Authored Date: [id number] Patient Care team information Care Team Personnel Name: Che Fuller NP Position: [facility] Associate Professional Member Role: PCP Address: Address: [address] [place] [address] Care Team Related Persons Name: THUY CARNES Address: home [address] [place] [address] Name: TEMI MCCLELLAN Address: home [address] [place], [place] [id number] Name: CARISSA SHOOK Address: [place] [address]
--- OUTSIDE RECORDS SUMMARY | 2022-11-11 23:56 | XMS_ITS | Continuity of Care Document ---
Author Name Unknown Organization [facility] Address [address] [place] [address]- Care Team Providers Care Formula Technician Name Role Phone Jonny HAND RIVETER, Che Primary Care Physician Encounter [facility] Date(s): 04/09/20 - 05/09/20 [facility] [address] [place] [address]- Allergies, Adverse Reactions, Alerts No Known Medication [...] PRN for constipation, Take daily for constipation Cymro, # 60 capsule, 2 Refills, Maintenance, 05/08/20 16:23:00 EST, Capsule, [facility]/pharmacy #1972, Partial fill upon patient request if [...] a day, For anemia. Take with food. Cymro., # 100 tablet, 2 Refills, Maintenance, 03/02/20 16:57:00 EDT, Tablet, [facility]/pharmacy #1972, 168, cm, 11/30/19 15:43:00 EDT, Height, 75, kg, 06/28/19 9:52:00 EST, Dry We... Start Date: 03/02/20 Status: Ordered gabapentin 600 mg oral tablet 1 tablet = 600 mg, By Mouth, 2 times a day, Increase in dose. For leg and back pain. May cause drowsiness. Cymro., # 60 tablet, 2 Refills, Maintenance, 05/08/20 16:26:00 EST, [facility]/pharmacy #1972, Partial fill upon patient request if [...] hrs before meals as needed for diarrhea. Cymro., # 100 capsule, Refills 0, Tot. Refills [...] PRN constipation. dissolve in water before taking Cymro, # 527 Gm, 1 Refills, Maintenance, 05/08/20 16:24:00 EST, REC Powder, [facility], Partial fill upon patientrequest if the prescription is for a schedule II o... Start Date: 05/08/20 Status: Ordered omeprazole 20 mg oral enteric coated capsule 1 capsule = 20 mg, By Mouth, Daily, Take one capsule daily 30 mins before breakfast. Cymro., # 30capsule, 3 Refills, Maintenance, 03/02/19 9:38:05 [...] Daily at bedtime, Take daily for constipation. Cymro. for 30 days, # 60 tablet, Refills 2, Tot. Refills 2, Acute, 08/06/20 16:24:00 EDT, 05/08/20 16:24:00 EST, Route to Pharmacy Electronically, [facility]/pharmacy #1972 Tabl... Start Date: 05/08/20 Stop Date: [...]
--- OUTSIDE RECORDS SUMMARY | 2022-11-11 23:56 | XMS_ITS | Continuity of Care Document ---
Author Name Unknown Organization [facility] Address [address] [place] [address]- Care Team Providers Care Cello Teacher Name Role Phone Jonny BAUTISTA, Che Primary Care Physician Encounter [facility] Date(s): 11/23/19 - 12/23/19 [facility]/[address] [address]- [facility] Allergies, Adverse Reactions, Alerts No Known Medication [...] Comment: [09/05/2013] ORDERED BY RISSA MASON MD [facility] [place] STOCK 5Admin Note: GIVEN VIS 07/15/05 6Admin Note: VIS Medications cholestyramine 4 g/5.5 g oral powder for reconstitution = 4 Gm, By Mouth, 2 times a day, dissolve in water or juice- northern irish, # 60 each, 3 Refills, Maintenance, 03/02/19 [...] 2 times a day, PRN back pain. Gambian., # 60 capsule, Refills 0, Tot.Refills 0, Maintenance, 11/24/19 16:35:00 EDT, Route to Pharmacy Electronically, [facility]/pharmacy #1972, 168, cm, 06/28/19 9:52:00 EST, Height, 75, kg, 02/... Start Date: 11/24/19 Status: Ordered LaMICtal 25 mg oral tablet [...] hrs before meals as needed for diarrhea. Gambian., # 100 capsule, Refills 0, Tot. Refills 0, Maintenance, 04/13/18 10:22:05 EST, Instructions Replace Required Details, Route to Pharmacy Electronically, [id number]... Start Date: 04/13/18 Status: Ordered meloxicam 7.5 mg oral tablet 1 tablet = 7.5 mg, By Mouth, Daily, # 30 tablet, 1 Refills, Maintenance, 06/28/19 10:23:00 EST, Tablet, [facility]/pharmacy #1972, 168, cm, 06/28/19 9:52:00 EST, Height, 75, kg, 06/28/19 9:52:00 EST, Dry Weight Start Date: 06/28/19 Status: Ordered omeprazole 20 mg oral enteric coated capsule 1 capsule = 20 mg, By Mouth, Daily, Take one capsule daily 30 mins before breakfast. Gambian., # 30capsule, 3 Refills, Maintenance, 03/02/19 9:38:05 EDT, EC Capsule Start Date: 03/02/19 Stop Date: 06/30/19 Status: Ordered omeprazole 20 mg oral enteric coated capsule 1 capsule = 20 mg, By Mouth, 2 times a day, To replace tablet, # 28 capsule, 0 Refills, Maintenance, 06/23/19 17:47:00 EST, [facility]/pharmacy #1972, 168, cm, 03/02/19 9:08:00 EDT, Height [...]
--- OUTSIDE RECORDS SUMMARY | 2022-11-11 23:56 | XMS_ITS | Continuity of Care Document ---
Author Name Unknown Organization [facility] Address Unknown Care Team Providers Care Computer Hardware Developer Name Role Phone Jonny BAUTISTA, Che Primary Care Physician Encounter [facility] Date(s): 10/24/20 - 01/31/21 [facility] Attending Physician: Jonny BAUTISTA, Che Admitting Physician: Che Fuller NP Allergies, Adverse [...] Comment: [09/05/2013] ORDERED BY RISSA MASON MD [facility] STOCK 5Admin Note: GIVEN VIS 07/15/05 6Admin Note: VIS Medications clonazePAM 1 mg oral tablet 1 TABLET BY MOUTH THREE TIMES A DAY NEEDED Start Date: 09/18/20 Status: Ordered docusate sodium 100 mg oral capsule 1 capsule = 100 mg, By Mouth, 2 times a day, PRN for constipation, Take daily for constipation Greenlandic, # 60 capsule, 2 Refills, Maintenance, 05/08/20 16:23:00 EST, Capsule, [facility], Partial fill upon patient request if the prescription i... Start Date: 05/08/20 Status: Ordered ferrous gluconate 324 mg (37.5 mg elemental iron) oral tablet 1 tablet = 324 mg, By Mouth, 2 times a day, For anemia. Take with food. Greenlandic., # 100 tablet, 2 Refills, Maintenance, 03/02/20 [...] leg and back pain. May cause drowsiness. Greenlandic., # 60 tablet, 2 Refills, Maintenance, 08/15/20 [...] PRN constipation. dissolve in water before taking Greenlandic, # 527 Gm, 1 Refills, Maintenance, 05/08/20 16:24:00 EST, REC Powder, [facility]/pharmacy #1972, Partial fill upon patientrequest if the prescription is for a schedule II o... Start Date: 05/08/20 Status: Ordered omeprazole 20 mg oral enteric coated capsule 1 capsule = 20 mg, By Mouth, 2 times a day, To replace tablet, # 28 capsule, 0 Refills, Maintenance, 06/23/19 17:47:00 EST, [facility]/pharmacy #1972, 168, cm, 03/02/19 9:08:00 EDT, Height [...]
--- OUTSIDE RECORDS SUMMARY | 2022-11-11 23:56 | XMS_ITS | Continuity of Care Document ---
Author Name Unknown Organization [facility] ter Address [address] [place] [address]- Care Team Providers Care Crewman Armoured Personnel Carrier M113 Name Role Phone Jonny BAUTISTA, Che Primary Care Physician [facility]): 08[facility]20 - 10/01/[address] [address] Attending Physician: Che Fuller NP Admitting Physician: [...] Comment: [09/05/2013] ORDERED BY RISSA MASON MD [facility] 5Admin Note: GIVEN VIS 07/15/05 6Admin Note: VIS Medications clonazePAM 1 mg oral tablet 1 TABLET BY MOUTH THREE TIMES A DAY NEEDED Start Date: 09/18/20 Status: Ordered docusate sodium 100 mg oral capsule 1 capsule = 100 mg, By Mouth, 2 times a day, PRN for constipation, Take daily for constipation Thai, # 60 capsule, 2 Refills, Maintenance, 05/08/20 16:23:00 EST, Capsule, [facility], Partial fill upon patient request if the prescription i... Start Date: 05/08/20 Status: Ordered ferrous gluconate 324 mg (37.5 mg elemental iron) oral tablet 1 tablet = 324 mg, By Mouth, 2 times a day, For anemia. Take with food. Thai., # 100 tablet, 2 Refills, Maintenance, 03/02/20 [...] leg and back pain. May cause drowsiness. Thai., # 60 tablet, 2 Refills, Maintenance, 08/15/20 [...] PRN constipation. dissolve in water before taking Thai, # 527 Gm, 1 Refills, Maintenance, 05/08/20 16:24:00 EST, REC Powder, [facility]/pharmacy #1972, Partial fill upon patientrequest if [...]
--- OUTSIDE RECORDS SUMMARY | 2022-11-11 23:56 | XMS_ITS | Continuity of Care Document ---
Author Name Unknown Organization [facility] Address Unknown Care Team Providers Care Geriatric Psychiatrist Name Role Phone Che Fuller NP Primary Care Physician [phone] [facility]counter [facility] Date(s): 04/04/21 - 05/04/21 [facility] Allergies, Adverse Reactions, Alerts No Known [...] Comment: [09/05/2013] ORDERED BY RISSA MASON MD [facility] ST[facility] 5Admin Note: GIVEN VIS 07/15/05 6Admin Note: VIS Medications clonazePAM 1 mg oral tablet 1 TABLET BY MOUTH THREE TIMES A DAY NEEDED Start Date: 09/18/20 Status: Ordered docusate sodium 100 mg oral capsule 1 capsule = 100 mg, By Mouth, 2 times a day, PRN for constipation, Take daily for constipation Albanian, # 60 capsule, 2 Refills, Maintenance, 05/08/20 16:23:00 EST, Capsule, [facility]/pharmacy #1972, Partial fill upon patient request if the prescription i... Start Date: 05/08/20 Status: Ordered ferrous gluconate 324 mg (37.5 mg elemental iron) oral tablet 1 tablet = 324 mg, By Mouth, 2 times a day, For anemia. Take with food. Albanian., # 100 tablet, 2 Refills, Maintenance, 03/02/20 16:57:00 EDT, Tablet, [facility]/pharmacy #1972, 168, cm, 11/30/19 15:43:00 EDT, [...] leg and back pain. May cause drowsiness. Albanian., # 60 tablet, 2 Refills, Maintenance, 02/18/21 14:43:00 EDT, [facility], Partial fill upon patient request if the [...] 0 Refills, Maintenance, 02/18/21 14:45:00 EDT, Film, [facility], Partial fill upon patient request if the pre... Start Date: 02/18/21 Status: Ordered meloxicam 7.5 mg oral tablet 1 tablet = 7.5 mg, By Mouth, Daily, # 30 tablet, 1 Refills, Maintenance, 06/28/19 10:23:00 EST, Tablet, [facility]/pharmacy #1972, 168, cm, 06/28/19 9:52:00 EST, Height, 75, kg, 06/28/19 9:52:00 EST, Dry Weight Start Date: 06/28/19 Status: Ordered MiraLax oral powder for reconstitution = 17 Gm, By Mouth, Daily, PRN constipation. dissolve in water before taking Albanian, # 527 Gm, 1 Refills, Maintenance, 05/08/20 16:24:00 EST, REC Powder, [facility]/pharmacy #1972, Partial fill upon patientrequest if [...]
--- OUTSIDE RECORDS SUMMARY | 2022-11-11 23:56 | XMS_ITS | Continuity of Care Document ---
Author Name Unknown Organization [facility] Address [address] [place] [address]- Care Team Providers Care Concrete Plant Laborer Name Role Phone Jonny BAUTISTA, Che Primary Care Physician En[place] [facility] [place] 04/04/20 - 05/04/[address] [address] Attending Physician: Channing Huizar Admitting Physician: AdmChanning sidhu Referring Physician: Admtr, ArDamion Allergies, Adverse Reactions, [...] [09/05/2013] ORDERED BY RISSA MASON MD [facility] [place] 5Admin Note: GIVEN VIS 07/15/05 6Admin Note: VIS Medications cholestyramine 4 g/5.5 g oral powder for reconstitution = 4 Gm, By Mouth, 2 times a day, dissolve in water or juice- maltese, # 60 each, 3 Refills, Maintenance, 10/09/19 9:35:40 EDT, REC Powder Start Date: 03/02/19 [...] a day, For anemia. Take with food. Greek., # 100 tablet, 2 Refills, Maintenance, 03/02/20 16:57:00 EDT, Tablet, [facility]/pharmacy #1972, 168, cm, 11/30/19 15:43:00 EDT, Height, 75, kg, 06/28/19 9:52:00 EST, Dry We... Start Date: 03/02/20 Status: Ordered gabapentin 400 mg oral capsule 400 mg, 1, capsule, By Mouth, 2 times a day, PRN back pain. Greek., # 60 capsule, Refills 0, Tot.Refills 0, Maintenance, 02/22/20 14:44:00 EDT, Route to Pharmacy Electronically, [facility]/pharmacy #1972, 168, cm, 11/30/19 15:43:00 [...] hrs before meals as needed for diarrhea. Greek., # 100 capsule, Refills 0, Tot. Refills 0, Maintenance, 04/13/18 10:22:05 EST, Instructions Replace Required Details, Route to Pharmacy Electronically, [id number]... Start Date: 04/13/18 Status: Ordered meloxicam 7.5 mg oral tablet 1 tablet = 7.5 mg, By Mouth, Daily, # 30 tablet, 1 Refills, Maintenance, 06/28/19 10:23:00 EST, Tablet, [facility]/pharmacy #1972, 168, cm, 06/28/19 9:52:00 EST, Height, 75, kg, 06/28/19 9:52:00 EST, Dry Weight Start Date: 06/28/19 Status: Ordered omeprazole 20 mg oral enteric coated capsule 1 capsule = 20 mg, By Mouth, Daily, Take one capsule daily 30 mins before breakfast. Greek., # 30capsule, 3 Refills, Maintenance, 03/02/19 9:38:05 [...]
--- OUTSIDE RECORDS SUMMARY | 2022-11-11 23:56 | XMS_ITS | Continuity of Care Document ---
Author Name Unknown Organization [facility] Address [address] [place] [address]- Care Team Providers Care Lead Oracle Developer Name Role Phone Jonny BAUTISTA, Che Primary Care Physician [phone] [facility]): 08/17/19 - 08/24/19 [facility]/[address] [address]- [facility] Attending Physician: Pb SAUCEDO, Tonja Murry Allergies, [...] a day, dissolve in water or juice- divehi, # 60 each, 3 Refills, Maintenance, 03/02/19 [...] 08/27/19 10:23:00 EDT, 06/28/19 10:23:00 EST, Tablet, [facility]/pharmacy #1972, [...] 08/17/19 11:33:00 EDT, Route to Pharmacy Electronically,[facility]/pharmacy #1972, 168, cm, 06/28/19 9:52:00 EST,... Start [...] hrs before meals as needed for diarrhea. Bolivian., # 100 capsule, Refills 0, Tot. Refills [...] one capsule daily 30 mins before breakfast. Bolivian., # 30capsule, 3 Refills, Maintenance, 03/02/19 9:38:05 [...]
--- OUTSIDE RECORDS SUMMARY | 2022-11-11 23:56 | XMS_ITS | Continuity of Care Document ---
Author Name Unknown Organization [facility] Address [address] [place] [address]- Care Team Providers Care Flexo Operator Name Role Phone Jonny BAUTISTA, Che Primary Care Physician [phone] [place] [facility] [place] 07[place]/22 - 09/13/22 [facility] [address]- Attending Physician: Not on Staff, Attending MD [...] Comment: [09/05/2013] ORDERED BY RISSA MASON MD [facility] [place] 5Admin Note: GIVEN VIS 07/15/05 6Admin Note: VIS Medications clonazePAM 1 mg oral tablet Per Psych Dr Christy Start Date: 07/24/22 Status: Ordered docusate sodium 100 mg oral capsule 1 capsule = 100 mg, By Mouth, 2 times a day, PRN for constipation, Take daily for constipation Japanese, # 60 capsule, 2 Refills, Maintenance, 07/24/22 14:30:00 EST, [facility]aps[facility], [facility], Partial fill upon patient request if the prescription i... Start Date: 07/24/22 Status: Ordered ferrous gluconate 324 mg (37.5 mg elemental iron) oral tablet 1 tablet = 324 mg, By Mouth, 2 times a day, For anemia. Take with food. Japanese., # 100 tablet, 2 Refills, Maintenance, 03/02/20 [...] Refills, Maintenance, 08/21/22 8:07:00 EDT, [id number], 168, cm, 07/24/22 14:05:00 EST, Height Start [...] PRN constipation. dissolve in water before taking Japanese, # 527 Gm, 2 Refills, Maintenance, 07/24/22 [...] Gm, By Mouth, 2 times a day, Japanese Please dispense two 450 mL bottles for [...] at age: 10; entered on: 07/24/22 Sex Patient Care team information Care Team Personnel Name: Che Fuller NP Position: [facility] PCO Associate Professional Member Role: PCP Address: Address: [address] [place] [address]- Care Team Related Persons Name: THUY CARNES Address: home [address] [place] [address] Name: TEMI MCCLELLAN Address: home [address] [place] [address] Name: CARISSA SHOOK Address: [place] [address]
--- OUTSIDE RECORDS SUMMARY | 2022-11-11 23:56 | XMS_ITS | Continuity of Care Document ---
Author Name Unknown Organization [facility] Address Unknown Care Team Providers Care Patron Attendant Name Role Phone Che Fuller NP Primary Care Physician [facility] Date(s): 02/15/21 - 03/17/21 [facility] Allergies, Adverse Reactions, Alerts No Known [...] PRN for constipation, Take daily for constipation Armenian, # 60 capsule, 2 Refills, Maintenance, 05/08/20 16:23:00 EST, Capsule, [facility]/pharmacy #1972, Partial fill upon patient request if the prescription i... Start Date: 05/08/20 Status: Ordered ferrous gluconate 324 mg (37.5 mg elemental iron) oral tablet 1 tablet = 324 mg, By Mouth, 2 times a day, For anemia. Take with food. Armenian., # 100 tablet, 2 Refills, Maintenance, 03/02/20 16:57:00 EDT, Tablet, [facility]/pharmacy #1972, 168, cm, 11/30/19 [...] leg and back pain. May cause drowsiness. Armenian., # 60 tablet, 2 Refills, Maintenance, 02/18/21 14:43:00 EDT, [facility], Partial fill upon patient request if [...] 0 Refills, Maintenance, 02/18/21 14:45:00 EDT, Film, [facility], Partial fill upon patient request if the pre... Start Date: 02/18/21 Status: Ordered meloxicam 7.5 mg oral tablet 1 tablet = 7.5 mg, By Mouth, Daily, # 30 tablet, 1 Refills, Maintenance, 06/28/19 10:23:00 EST, Tablet, [facility]/pharmacy #1972, 168, cm, 06/28/19 9:52:00 EST, Height, 75, kg, 06/28/19 9:52:00 EST, Dry Weight Start Date: 06/28/19 Status: Ordered MiraLax oral powder for reconstitution = 17 Gm, By Mouth, Daily, PRN constipation. dissolve in water before taking Armenian, # 527 Gm, 1 Refills, Maintenance, 05/08/20 16:24:00 EST, REC Powder, [facility]/pharmacy #1972, Partial fill upon patientrequest if the prescription is for a schedule II o... Start Date: 05/08/20 Status: Ordered naproxen 500 mg oral delayed release tablet 1 tablet = 500 mg, By Mouth, 2 times a day, with food do not take with other NSAIDs, # 60 tablet, 0Refills, Acute 03/20/21 14:45:00 EDT, 02/18/21 14:44:00 EDT, EC Tablet, [facility], Partial fill upon patient request if [...]
--- OUTSIDE RECORDS SUMMARY | 2022-11-11 23:56 | XMS_ITS | Continuity of Care Document ---
Author Name Unknown Organization [facility] Address [address] [place] [address]- Care Team Providers Care Blue Print Control Clerk Name Role Phone Che Fuller NP Primary Care Physician [facility] Date[facility]s): 02/14/20 - 03/15/20 [facility] [address] [place] [address]- [facility] Allergies, Adverse Reactions, Alerts No Known [...] Comment: [09/05/2013] ORDERED BY RISSA MASON MD [facility] ST[facility] 5Admin Note: GIVEN VIS 07/15/05 6Admin Note: VIS Medications cholestyramine 4 g/5.5 g oral powder for reconstitution = 4 Gm, By Mouth, 2 times a day, dissolve in water or juice- estonian, # 60 each, 3 Refills, Maintenance, 03/02/19 [...] a day, For anemia. Take with food. Latvian., # 100 tablet, 2 Refills, Maintenance, 03/02/20 16:57:00 EDT, Tablet, [facility]/pharmacy #1972, 168, cm, 11/30/19 15:43:00 EDT, Height, 75, kg, 06/28/19 9:52:00 EST, Dry We... Start Date: 03/02/20 Status: Ordered gabapentin 400 mg oral capsule 400 mg, 1, capsule, By Mouth, 2 times a day, PRN back pain. Latvian., # 60 capsule, Refills 0, Tot.Refills 0, Maintenance, 02/22/20 14:44:00 EDT, Route to Pharmacy Electronically, [facility]/pharmacy #1972, 168, cm, 11/30/19 15:43:00 EDT, [...] hrs before meals as needed for diarrhea. Latvian., # 100 capsule, Refills 0, Tot. Refills 0, Maintenance, 04/13/18 10:22:05 EST, Instructions Replace Required Details, Route to Pharmacy Electronically, [id number]... Start Date: 04/13/18 Status: Ordered meloxicam 7.5 mg oral tablet 1 tablet = 7.5 mg, By Mouth, Daily, # 30 tablet, 1 Refills, Maintenance, 06/28/19 10:23:00 EST, Tablet, [facility]/pharmacy #1972, 168, cm, 06/28/19 9:52:00 EST, Height, 75, kg, 06/28/19 9:52:00 EST, Dry Weight Start Date: 06/28/19 Status: Ordered omeprazole 20 mg oral enteric coated capsule 1 capsule = 20 mg, By Mouth, Daily, Take one capsule daily 30 mins before breakfast. Latvian., # 30capsule, 3 Refills, Maintenance, 03/02/19 9:38:05 [...]
--- OUTSIDE RECORDS SUMMARY | 2022-11-11 23:56 | XMS_ITS | Continuity of Care Document ---
Author Name Unknown Organization [facility] Address [address] [place] [address]- Care Team Providers Care Storage Facility Housekeeper Name Role Phone Jonny GROUP HOME WORKER, Che Primary Care Physician [facility] Date[facility]s): 08/09/20 - 09/08/20 [facility] [address] [place] [address]- Allergies, Adverse Reactions, Alerts No Known Medication [...] Comment: [09/05/2013] ORDERED BY RISSA MASON MD [facility] 5Admin Note: GIVEN VIS 07/15/05 6Admin Note: VIS Medications clonazePAM 1 mg oral tablet 1 tablet = 1 mg, By Mouth, 3 times a day, 0 Refills, Maintenance, 11/29/15 16:34:56 Start Date: 11/29/15 Status: Ordered docusate sodium 100 mg oral capsule 1 capsule = 100 mg, By Mouth, 2 times a day, PRN for constipation, Take daily for constipation Vatican Citizen, # 60 capsule, 2 Refills, Maintenance, 05/08/20 16:23:00 EST, Capsule, [facility]/pharmacy #1972, Partial fill upon patient request [...] a day, For anemia. Take with food. Vatican Citizen., # 100 tablet, 2 Refills, Maintenance, 03/02/20 16:57:00 EDT, Tablet, [facility], 168, cm, 11/30/19 15:43:00 EDT, Height, 75, kg, 06/28/19 9:52:00 EST, Dry We... Start Date: 03/02/20 Status: Ordered gabapentin 600 mg oral tablet 1 tablet = 600 mg, By Mouth, 2 times a day, Increase in dose. For leg and back pain. May cause drowsiness. Vatican Citizen., # 60 tablet, 2 Refills, Maintenance, 05/08/20 16:26:00 EST, [facility], Partial fill upon patient request if the prescription... Start Date: 05/08/20 Status: Ordered gabapentin 600 mg oral tablet 1 tablet = 600 mg, By Mouth, 2 times a day, For leg and back pain. May cause drowsiness. Vatican Citizen., # 60 tablet, 2 Refills, Maintenance, 08/15/20 [...] hrs before meals as needed for diarrhea. Vatican Citizen., # 100 capsule, Refills 0, Tot. Refills [...] PRN constipation. dissolve in water before taking Vatican Citizen, # 527 Gm, 1 Refills, Maintenance, 05/08/20 16:24:00 EST, REC Powder, [facility]/pharmacy #1972, Partial fill upon patientrequest if the prescription is for a schedule II o... Start Date: 05/08/20 Status: Ordered omeprazole 20 mg oral enteric coated capsule 1 capsule = 20 mg, By Mouth, Daily, Take one capsule daily 30 mins before breakfast. Vatican Citizen., # 30capsule, 3 Refills, Maintenance, 03/02/19 9:38:05 EDT, EC Capsule Start Date: 03/02/19 Stop Date: 06/30/19 Status: Ordered omeprazole 20 mg oral enteric coated capsule 1 capsule = 20 mg, By Mouth, 2 times a day, To replace tablet, # 28 capsule, 0 Refills, Maintenance, 06/23/19 17:47:00 EST, [facility]/pharmacy #1972, 168, cm, 03/02/19 9:08:00 EDT, [...]
--- OUTSIDE RECORDS SUMMARY | 2022-11-11 23:56 | XMS_ITS | Continuity of Care Document ---
Author Name Unknown Organization [facility] Address [address] [place] [address]- Care Team Providers Care Md Allergy Immunology Name Role Phone Jonny MOGUL OPERATOR, Che Primary Care Physician [facility] Date[facility]s): 05/14/20 - 06/13/20 [facility] [address] [place] [address]- Allergies, Adverse Reactions, Alerts No Known Medication [...] Comment: [09/05/2013] ORDERED BY RISSA MASON MD [facility] 5Admin Note: GIVEN VIS 07/15/05 6Admin Note: VIS Medications clonazePAM 1 mg oral tablet 1 tablet = 1 mg, By Mouth, 3 times a day, 0 Refills, Maintenance, 11/29/15 16:34:56 Start Date: 11/29/15 Status: Ordered docusate sodium 100 mg oral capsule 1 capsule = 100 mg, By Mouth, 2 times a day, PRN for constipation, Take daily for constipation Venezuelan, # 60 capsule, 2 Refills, Maintenance, 05/08/20 16:23:00 EST, Capsule, [facility]/pharmacy #1972, Partial fill upon patient request [...] a day, For anemia. Take with food. Venezuelan., # 100 tablet, 2 Refills, Maintenance, 03/02/20 16:57:00 EDT, Tablet, [facility]/pharmacy #1972, 168, cm, 11/30/19 15:43:00 EDT, Height, 75, kg, 06/28/19 9:52:00 EST, Dry We... Start Date: 03/02/20 Status: Ordered gabapentin 600 mg oral tablet 1 tablet = 600 mg, By Mouth, 2 times a day, Increase in dose. For leg and back pain. May cause drowsiness. Venezuelan., # 60 tablet, 2 Refills, Maintenance, 05/08/20 16:26:00 EST, [facility]/pharmacy #1972, Partial fill upon patient request [...] hrs before meals as needed for diarrhea. Venezuelan., # 100 capsule, Refills 0, Tot. Refills [...] PRN constipation. dissolve in water before taking Venezuelan, # 527 Gm, 1 Refills, Maintenance, 05/08/20 16:24:00 EST, REC Powder, [facility], Partial fill upon patientrequest if the prescription is for a schedule II o... Start Date: 05/08/20 Status: Ordered omeprazole 20 mg oral enteric coated capsule 1 capsule = 20 mg, By Mouth, Daily, Take one capsule daily 30 mins before breakfast. Venezuelan., # 30capsule, 3 Refills, Maintenance, 03/02/19 9:38:05 [...] Daily at bedtime, Take daily for constipation. Venezuelan. for 30 days, # 60 tablet, Refills 2, Tot. Refills 2, Acute, 08/06/20 16:24:00 EDT, 05/08/20 16:24:00 EST, Route to Pharmacy Electronically, [facility]/pharmacy #1972 Tabl... Start Date: 05/08/20 Stop Date: [...]
--- OUTSIDE RECORDS SUMMARY | 2022-11-11 23:56 | XMS_ITS | Continuity of Care Document ---
Author Name Unknown Organization [facility] Address [address] [place] [address]- Care Team Providers Care Imaging System Administrator Name Role Phone Che Fuller NP Primary Care Physician [facility] Date[facility]): 05/15/21 - 08/10/21 [facility] [address] [place] [address]- Attending Physician: Michele Drew MD Admitting Physician: Michele Drew MD Referring Physician: Che Fuller NP Allergies, Adverse [...] PRN for constipation, Take daily for constipation German, # 60 capsule, 2 Refills, Maintenance, 05/08/20 16:23:00 EST, Capsule, [facility]/pharmacy #1972, Partial fill upon patient request if the prescription i... Start Date: 05/08/20 Status: Ordered ferrous gluconate 324 mg (37.5 mg elemental iron) oral tablet 1 tablet = 324 mg, By Mouth, 2 times a day, For anemia. Take with food. German., # 100 tablet, 2 Refills, Maintenance, 03/02/20 16:57:00 EDT, Tablet, [facility]/pharmacy #1972, 168, cm, 11/30/19 15:43:00 [...] leg and back pain. May cause drowsiness. German., # 60 tablet, 2 Refills, Maintenance, 02/18/21 14:43:00 EDT, [facility], Partial fill upon patient request if the [...] 0 Refills, Maintenance, 02/18/21 14:45:00 EDT, Film, [facility], Partial fill upon patient request if the [...] PRN constipation. dissolve in water before taking German, # 527 Gm, 1 Refills, Maintenance, 05/08/20 [...] History Type Response Smoking Status 5-9 cigarettes (susie romo 1/4 to 1/2 pack)/day in last 30 days; Type: Cigarettes; Tobacco use times per day: 5-9 cigs a day; Started at age: 10; entered on: 06/28/19 Sex
--- OUTSIDE RECORDS SUMMARY | 2022-11-11 23:56 | XMS_ITS | Continuity of Care Document ---
Author Name Unknown Organization [facility] Address Unknown Care Team Providers Care Orthopaedic Physician Assistant Name Role Phone Jonny BAUTISTA, Che Primary Care Physician [place] [facility] [place] 12/09/21 - 01/08/22 [facility] Allergies, Adverse Reactions, Alerts No Known [...] Comment: [09/05/2013] ORDERED BY RISSA MASON MD [facility] [place] 5Admin Note: GIVEN VIS 07/15/05 6Admin Note: VIS Medications clonazePAM 1 mg oral tablet 1 TABLET BY MOUTH THREE TIMES A DAY NEEDED Start Date: 09/18/20 Status: Ordered docusate sodium 100 mg oral capsule 1 capsule = 100 mg, By Mouth, 2 times a day, PRN for constipation, Take daily for constipation Vincentian, # 60 capsule, 2 Refills, Maintenance, 05/08/20 16:23:00 EST, Capsule, [facility]/pharmacy #1972, Partial fill upon patient request if the prescription i... Start Date: 05/08/20 Status: Ordered ferrous gluconate 324 mg (37.5 mg elemental iron) oral tablet 1 tablet = 324 mg, By Mouth, 2 times a day, For anemia. Take with food. Vincentian., # 100 tablet, 2 Refills, Maintenance, 03/02/20 16:57:00 EDT, Tablet, [facility]/pharmacy #1972, 168, cm, 11/30/19 15:43:00 EDT, [...] CAUSAR SOMNOLENCIA, # 60 tablet, 1 Refills, [facility], 168, cm, 11/28/21 8:03:00 EDT, [...] 0 Refills, Maintenance, 02/18/21 14:45:00 EDT, Film, [facility], Partial fill upon patient request if the pre... Start Date: 02/18/21 Status: Ordered meloxicam 7.5 mg oral tablet 1 tablet = 7.5 mg, By Mouth, Daily, # 30 tablet, 1 Refills, Maintenance, 06/28/19 10:23:00 EST, Tablet, [facility]/pharmacy #1972, 168, cm, 06/28/19 9:52:00 EST, Height, 75, kg, 06/28/19 9:52:00 EST, Dry Weight Start Date: 06/28/19 Status: Ordered MiraLax oral powder for reconstitution = 17 Gm, By Mouth, Daily, PRN constipation. dissolve in water before taking Vincentian, # 527 Gm, 1 Refills, Maintenance, 05/08/20 16:24:00 EST, REC Powder, [facility]/pharmacy #1972, Partial fill upon patientrequest if [...] Response Smoking Status 5-9 cigarettes (betw een /4 to 1/2 pack)/day in last 30 days; Type: Cigarettes; Tobacco use times per day: 5-9 cigs a day; Started at age: 10; entered on: 06/28/19 Sex
--- OUTSIDE RECORDS SUMMARY | 2022-11-11 23:56 | XMS_ITS | Continuity of Care Document ---
Author Name Unknown Organization [facility] Address [address] [place] [id number]- Care Team Providers Care Salesforce Specialist Name Role Phone Che Fuller NP Primary Care Physician En[place] [facility] [place]s): 08/01/21 - 09/21/21 [facility] [address] [place] [id number]- Attending Physician: Michele Drew MD Admitting Physician: Michele Drew MD Allergies, Adverse Reactions, Alerts No Known [...] 2 Refills, Maintenance, 05/08/20 16:23:00 EST, Capsule, [facility]/pharmacy #1972, Partial fill upon patient request if the prescription i... Start Date: 05/08/20 Status: Ordered ferrous gluconate 324 mg (37.5 mg elemental iron) oral tablet 1 tablet = 324 mg, By Mouth, 2 times a day, For anemia. Take with food. Greenlandic., # 100 tablet, 2 Refills, Maintenance, 03/02/20 16:57:00 EDT, Tablet, [facility]/pharmacy #1972, 168, cm, 11/30/19 15:43:00 [...] Greenlandic., # 60 tablet, 2 Refills, Maintenance, 08/28/21 10:47:00 EDT, [facility], Partial fill upon patient request if the prescription is for... Start Date: 08/28/21 Status: Ordered Latuda 40 mg oral tablet TOME DAIVD TABLETA POR V A ORAL CADA NOCHE Start Date: 09/18/20 Status: Ordered lidocaine 5% topical film 1 patch, Topically, Daily, PRN Pain , Mild, For low back pain. Do not leave on for more than 12 hrsSpanish, # 30 patch, 0 Refills, Maintenance, 02/18/21 14:45:00 EDT, Film, [facility], Partial fill upon patient request [...]
--- OUTSIDE RECORDS SUMMARY | 2022-11-11 23:56 | XMS_ITS | Continuity of Care Document ---
Author Name Unknown Organization [facility] ter Address [address] [place] [id number]- Care Team Providers Care Sprinkler Inspector Name Role Phone Jonny BAUTISTA, Che Primary Care Physician [facility]counter [facility] Date(s): 06/04/20 - 07/14/[address] [address] [...] ORDERED BY RISSA MASON [place] [facility] 5Admin Note: GIVEN VIS 07/15/05 6Admin Note: VIS Medications clonazePAM 1 mg oral tablet 1 tablet = 1 mg, By Mouth, 3 times a day, 0 Refills, Maintenance, 11/29/15 16:34:56 Start Date: 11/29/15 Status: Ordered docusate sodium 100 mg oral capsule 1 capsule = 100 mg, By Mouth, 2 times a day, PRN for constipation, Take daily for constipation Solomon Islander, # 60 capsule, 2 Refills, Maintenance, 05/08/20 16:23:00 EST, Capsule, [facility]/pharmacy #1972, Partial fill upon patient request if [...] a day, For anemia. Take with food. Solomon Islander., # 100 tablet, 2 Refills, Maintenance, 03/02/20 16:57:00 EDT, Tablet, [facility]/pharmacy #1972, 168, cm, 11/30/19 15:43:00 EDT, Height, 75, kg, 06/28/19 9:52:00 EST, Dry We... Start Date: 03/02/20 Status: Ordered gabapentin 600 mg oral tablet 1 tablet = 600 mg, By Mouth, 2 times a day, Increase in dose. For leg and back pain. May cause drowsiness. Solomon Islander., # 60 tablet, 2 Refills, Maintenance, 05/08/20 16:26:00 EST, [facility]/pharmacy #1972, Partial fill upon patient request if [...] hrs before meals as needed for diarrhea. Solomon Islander., # 100 capsule, Refills 0, Tot. Refills 0, Maintenance, 04/13/18 10:22:05 EST, Instructions Replace Required Details, Route to Pharmacy Electronically, [id number]... Start Date: 04/13/18 Status: Ordered meloxicam 7.5 mg oral tablet 1 tablet = 7.5 mg, By Mouth, Daily, # 30 tablet, 1 Refills, Maintenance, 06/28/19 10:23:00 EST, Tablet, [facility]/pharmacy #1972, 168, cm, 06/28/19 9:52:00 EST, Height, 75, kg, 06/28/19 9:52:00 EST, Dry Weight Start Date: 06/28/19 Status: Ordered MiraLax oral powder for reconstitution = 17 Gm, By Mouth, Daily, PRN constipation. dissolve in water before taking Solomon Islander, # 527 Gm, 1 Refills, Maintenance, 05/08/20 16:24:00 EST, REC Powder, [facility]/pharmacy [facility]1972, Partial fill upon patientrequest if the prescription is for a schedule II o... Start Date: 05/08/20 Status: Ordered omeprazole 20 mg oral enteric coated capsule 1 capsule = 20 mg, By Mouth, Daily, Take one capsule daily 30 mins before breakfast. Solomon Islander., # 30capsule, 3 Refills, Maintenance, 03/02/19 9:38:05 [...] Daily at bedtime, Take daily for constipation. Solomon Islander. for 30 days, # 60 tablet, Refills 2, Tot. Refills 2, Acute, 08/06/20 16:24:00 EDT, 05/08/20 16:24:00 EST, Route to Pharmacy Electronically, [facility]/pharmacy #1972 Tabl... Start Date: 05/08/20 Stop Date: [...]
--- OUTSIDE RECORDS SUMMARY | 2022-11-11 23:56 | XMS_ITS | Continuity of Care Document ---
Author Name Unknown Organization [facility] Address Unknown Care Team Providers Care Sales Record Clerk Name Role Phone Che Fuller NP Primary Care Physician Encounter [facility] Date(s): 01/31/21 - 03/02/21 [facility] Allergies, Adverse Reactions, Alerts No Known [...] PRN for constipation, Take daily for constipation Mauritian, # 60 capsule, 2 Refills, Maintenance, 05/08/20 16:23:00 EST, Capsule, [facility]/pharmacy #1972, Partial fill upon patient request if the prescription i... Start Date: 05/08/20 Status: Ordered ferrous gluconate 324 mg (37.5 mg elemental iron) oral tablet 1 tablet = 324 mg, By Mouth, 2 times a day, For anemia. Take with food. Mauritian., # 100 tablet, 2 Refills, Maintenance, 03/02/20 16:57:00 EDT, Tablet, [facility]/pharmacy #1972, 168, cm, 11/30/19 15:43:00 [...] leg and back pain. May cause drowsiness. Mauritian., # 60 tablet, 2 Refills, Maintenance, 02/18/21 14:43:00 EDT, [facility], Partial fill upon patient request if the [...] 0 Refills, Maintenance, 02/18/21 14:45:00 EDT, Film, [facility], Partial fill upon patient request if the pre... Start Date: 02/18/21 Status: Ordered meloxicam 7.5 mg oral tablet 1 tablet = 7.5 mg, By Mouth, Daily, # 30 tablet, 1 Refills, Maintenance, 06/28/19 10:23:00 EST, Tablet, [facility]/pharmacy #1972, 168, cm, 06/28/19 9:52:00 EST, Height, 75, kg, 06/28/19 9:52:00 EST, Dry Weight Start Date: 06/28/19 Status: Ordered MiraLax oral powder for reconstitution = 17 Gm, By Mouth, Daily, PRN constipation. dissolve in water before taking Mauritian, # 527 Gm, 1 Refills, Maintenance, 05/08/20 16:24:00 EST, REC Powder, [facility]/pharmacy #1972, Partial fill upon patientrequest if the prescription is for a schedule II o... Start Date: 05/08/20 Status: Ordered naproxen 500 mg oral delayed release tablet 1 tablet = 500 mg, By Mouth, 2 times a day, with food do not take with other NSAIDs, # 60 tablet, 0Refills, Acute 03/20/21 14:45:00 EDT, 02/18/21 14:44:00 EDT, EC Tablet, [facility], Partial fill upon patient request if [...]
--- OUTSIDE RECORDS SUMMARY | 2022-11-11 23:56 | XMS_ITS | Continuity of Care Document ---
Author Name Unknown Organization [facility] Address Unknown Care Team Providers Care Nonprofit Manager Name Role Phone Jonny BAUTISTA, Che Primary Care Physician [phone] Encounter [facility] [place] Date(s): 09/19/20 - 02/22/21 [facility] Attending Physician: Jonny BAUTISTA, Che Admitting Physician: [...] Comment: [09/05/2013] ORDERED BY RISSA MASON MD [facility] [place] ST[facility] 5Admin Note: GIVEN VIS 07/15/05 6Admin Note: VIS Medications clonazePAM 1 mg oral tablet 1 TABLET BY MOUTH THREE TIMES A DAY NEEDED Start Date: 09/18/20 Status: Ordered docusate sodium 100 mg oral capsule 1 capsule = 100 mg, By Mouth, 2 times a day, PRN for constipation, Take daily for constipation Latvian, # 60 capsule, 2 Refills, Maintenance, 05/08/20 16:23:00 EST, Capsule, [facility]/pharmacy #1972, Partial fill upon [...] leg and back pain. May cause drowsiness. Latvian., # 60 tablet, 2 Refills, Maintenance, 02/18/21 14:43:00 EDT, [facility], Partial fill upon patient request if [...] 0 Refills, Maintenance, 02/18/21 14:45:00 EDT, Film, [facility], Partial fill upon patient request if the pre... Start Date: 02/18/21 Status: Ordered meloxicam 7.5 mg oral tablet 1 tablet = 7.5 mg, By Mouth, Daily, # 30 tablet, 1 Refills, Maintenance, 06/28/19 10:23:00 EST, Tablet, [facility]/pharmacy #1972, 168, cm, 06/28/19 9:52:00 EST, Height, 75, kg, 06/28/19 9:52:00 EST, Dry Weight Start Date: 06/28/19 Status: Ordered MiraLax oral powder for reconstitution = 17 Gm, By Mouth, Daily, PRN constipation. dissolve in water before taking Latvian, # 527 Gm, 1 Refills, Maintenance, 05/08/20 16:24:00 EST, REC Powder, [facility]/pharmacy #1972, Partial fill upon patientrequest if the prescription is for a schedule II o... Start Date: 05/08/20 Status: Ordered naproxen 500 mg oral delayed release tablet 1 tablet = 500 mg, By Mouth, 2 times a day, with food do not take with other NSAIDs, # 60 tablet, 0Refills, Acute 03/20/21 14:45:00 EDT, 02/18/21 14:44:00 EDT, EC Tablet, [facility], Partial fill upon patient request if [...]
--- OUTSIDE RECORDS SUMMARY | 2022-11-11 23:56 | XMS_ITS | Continuity of Care Document ---
Author Name Unknown Organization [facility] Address [address] [place] [address]- Care Team Providers Care Utility Specialist Name Role Phone Jonny BAUTISTA, Che Primary Care Physician [phone] [place] [facility] [place] 10/26/21 [facility] [address] [place] [address]- Attending Physician: Michele Drew MD Admitting Physician: [...] Comment: [09/05/2013] ORDERED BY RISSA MASON MD [facility] 5Admin Note: GIVEN VIS 07/15/05 6Admin Note: VIS Medications clonazePAM 1 mg oral tablet 1 TABLET BY MOUTH THREE TIMES A DAY NEEDED Start Date: 09/18/20 Status: Ordered docusate sodium 100 mg oral capsule 1 capsule = 100 mg, By Mouth, 2 times a day, PRN for constipation, Take daily for constipation South African, # 60 capsule, 2 Refills, Maintenance, 05/08/20 16:23:00 EST, Capsule, [facility]/pharmacy #1972, Partial fill upon patient request if the prescription i... Start Date: 05/08/20 Status: Ordered ferrous gluconate 324 mg (37.5 mg elemental iron) oral tablet 1 tablet = 324 mg, By Mouth, 2 times a day, For anemia. Take with food. South African., # 100 tablet, 2 Refills, Maintenance, 03/02/20 16:57:00 EDT, Tablet, [facility]/pharmacy #1972, 168, cm, 11/30/19 15:43:00 EDT, Height, [...] leg and back pain. May cause drowsiness. South African., # 60 tablet, 2 Refills, Maintenance, 08/28/21 10:47:00 EDT, [facility], Partial fill upon patient request if [...] 0 Refills, Maintenance, 02/18/21 14:45:00 EDT, Film, [facility], Partial fill upon patient request if the pre... Start Date: 02/18/21 Status: Ordered meloxicam 7.5 mg oral tablet 1 tablet = 7.5 mg, By Mouth, Daily, # 30 tablet, 1 Refills, Maintenance, 06/28/19 10:23:00 EST, Tablet, [facility]/pharmacy #1972, 168, cm, 06/28/19 9:52:00 EST, Height, 75, kg, 06/28/19 9:52:00 EST, Dry Weight Start Date: 06/28/19 Status: Ordered MiraLax oral powder for reconstitution = 17 Gm, By Mouth, Daily, PRN constipation. dissolve in water before taking South African, # 527 Gm, 1 Refills, Maintenance, 05/08/20 16:24:00 EST, REC Powder, [facility]/pharmacy #1972, Partial fill upon patientrequest if the [...]
--- OUTSIDE RECORDS SUMMARY | 2022-11-11 23:56 | XMS_ITS | Continuity of Care Document ---
Author Name Unknown Organization [facility] ter Address [address] [place] [address]- Care Team Providers Care Vamp Stitcher Name Role Phone Che Fuller NP Primary Care Physician Encounter [facility] [place] Date(s): 07/28/22 - 08/30/[address] [address]- Attending Physician: Che Fuller NP Admitting Physician: [...] [09/05/2013] ORDERED BY RISSA MASON MD [facility] [place] STOCK 5Admin Note: GIVEN VIS 07/15/05 6Admin Note: VIS Medications clonazePAM 1 mg oral tablet Per Psych Dr Christy Start Date: 07/24/22 Status: Ordered docusate sodium 100 mg oral capsule 1 capsule = 100 mg, By Mouth, 2 times a day, PRN for constipation, Take daily for constipation Malagasy, # 60 capsule, 2 Refills, Maintenance, 07/24/22 14:30:00 EST, Capsule, [facility], Partial fill upon patient request if the prescription i... Start Date: 07/24/22 Status: Ordered ferrous gluconate 324 mg (37.5 mg elemental iron) oral tablet 1 tablet = 324 mg, By Mouth, 2 times a day, For anemia. Take with food. Malagasy., # 100 tablet, 2 Refills, Maintenance, 03/02/20 [...] Refills, Maintenance, 08/21/22 8:07:00 EDT, [id number], 168, cm, 07/24/22 14:05:00 EST, Height Start [...] PRN constipation. dissolve in water before taking Malagasy, # 527 Gm, 2 Refills, Maintenance, 07/24/22 [...] Gm, By Mouth, 2 times a day, Malagasy Please dispense two 450 mL bottles for [...] Associate Professional Member Role: PCP Address: Address: [address] [place] [address]- Care Team Related Persons Name: THUY CARNES Address: home [address] [place] [address] Name: TEMI MCCLELLAN Address: home [address] [place] [address] Name: CARISSA SHOOK Address: [place] [address]
--- OUTSIDE RECORDS SUMMARY | 2022-11-11 23:56 | XMS_ITS | Continuity of Care Document ---
Author Name Unknown Organization [facility] Address [address] [place] [address]- Care Team Providers Care Farm Or Ranch Animal Caretaker Name Role Phone Jonny BAUTISTA, Che Primary Care Physician Encounter [facility] Date(s): 06/20/19 - 06/30/19 [facility] [address] [place] [address]- Attending Physician: Channing Huizar Admitting Physician: AdmChanning [...] Comment: [09/05/2013] ORDERED BY RISSA MASON MD [facility] 5Admin Note: GIVEN VIS 07/15/05 6Admin Note: VIS Medications bismuth subsalicylate 262 mg oral tablet 2 tablet = 524 mg, Chew, 4 times a day, for 14 days, # 112 tablet, 0 Refills, Acute 07/06/19 13:51:00 EST, 06/22/19 13:51:00 EST, Tablet, [facility]/pharmacy #1972, 168, cm, 03/02/19 9:08:00 EDT, Height Start Date: 06/22/19 Stop Date: 07/06/19 Status: Ordered cholestyramine 4 g/5.5 g oral powder for reconstitution = 4 Gm, By Mouth, 2 times a day, dissolve in water or juice- sinhala, # 60 each, 3 Refills, Maintenance, 03/02/19 [...] 08/27/19 10:23:00 EDT, 06/28/19 10:23:00 EST, Tablet, [facility]/pharmacy #1972, 168, cm, 06/28/19 9:52:00 EST, Height, 75, kg, 06/28/19 9:52:00 EST, Dry Weight Start Date: 06/28/19 Stop Date: 08/27/19 Status: Ordered escitalopram 20 mg oral tablet 1 tablet = 20 mg, By Mouth, Daily, # 30 tablet, 0 Refills, Maintenance, 07/01/16 12:29:16, Tablet Start Date: 07/01/16 Status: Ordered Flagyl 250 mg oral tablet 1 tablet = 250 mg, By Mouth, Every 6 hours, for 14 days, # 56 tablet, 0 Refills, Acute 07/06/19 13:51:00 EST, 06/22/19 13:51:00 EST, [facility], 168, cm, 03/02/19 9:08:00 EDT, Height Start Date: 06/22/19 Stop Date: 07/06/19 Status: Ordered LaMICtal 25 mg oral tablet [...] hrs before meals as needed for diarrhea. Arabic., # 100 capsule, Refills 0, Tot. Refills 0, Maintenance, 04/13/18 10:22:05 EST, Instructions Replace Required Details, Route to Pharmacy Electronically, [id number]... Start Date: 04/13/18 Status: Ordered meloxicam 7.5 mg oral tablet 1 tablet = 7.5 mg, By Mouth, Daily, # 30 tablet, 1 Refills, Maintenance, 06/28/19 10:23:00 EST, Tablet, [facility]/pharmacy #1972, 168, cm, 06/28/19 9:52:00 EST, Height, 75, kg, 06/28/19 9:52:00 EST, Dry Weight Start Date: 06/28/19 Status: Ordered omeprazole 20 mg oral enteric coated capsule 1 capsule = 20 mg, By Mouth, Daily, Take one capsule daily 30 mins before breakfast. Arabic., # 30capsule, 3 Refills, Maintenance, 03/02/19 9:38:05 [...] 10:22:35 EDT Start Date: 02/11/18 Status: Ordered tetracycline 500 mg oral capsule 1 capsule = 500 mg, By Mouth, Every 6 hours, for 14 days, # 56 capsule, 0 Refills, Acute 07/06/19 13:51:00 EST, 06/22/19 13:51:00 EST, Capsule, [facility], 168, cm, 03/02/19 9:08:00 EDT, Height Start Date: 06/22/19 Stop Date: 07/06/19 Status: Ordered Problem List Condition Effective Dates [...]
--- OUTSIDE RECORDS SUMMARY | 2022-11-11 23:56 | XMS_ITS | Continuity of Care Document ---
Author Name Unknown Organization [facility] Address Unknown Care Team Providers Care Cutting Room Supervisor Name Role Phone Jonny BAUTISTA, Che Primary Care Physician Encounter [facility] Date(s): 04/15/21 - 05/15/21 [facility] Attending Physician: Admtr, Channing Allergies, Adverse [...] Comment: [09/05/2013] ORDERED BY RISSA MASON MD [facility] 5Admin Note: GIVEN VIS 07/15/05 [...] Refills, Maintenance, 05/08/20 16:23:00 EST, Capsule, [facility]/pharmacy #1972, Partial fill upon patient request if the prescription i... Start Date: 05/08/20 Status: Ordered ferrous gluconate 324 mg (37.5 mg elemental iron) oral tablet 1 tablet = 324 mg, By Mouth, 2 times a day, For anemia. Take with food. Singaporean., # 100 tablet, 2 Refills, Maintenance, 03/02/20 16:57:00 EDT, Tablet, [facility]/pharmacy #1972, 168, cm, 11/30/19 15:43:00 EDT, Height, [...] Singaporean., # 60 tablet, 2 Refills, Maintenance, 02/18/21 14:43:00 EDT, [facility], Partial fill upon patient request if [...] 0 Refills, Maintenance, 02/18/21 14:45:00 EDT, Film, [facility], Partial fill upon patient request if the pre... Start Date: 02/18/21 Status: Ordered meloxicam 7.5 mg oral tablet 1 tablet = 7.5 mg, By Mouth, Daily, # 30 tablet, 1 Refills, Maintenance, 06/28/19 10:23:00 EST, Tablet, [facility]/pharmacy #1972, 168, cm, 06/28/19 9:52:00 EST, Height, 75, kg, 06/28/19 9:52:00 EST, Dry Weight Start Date: 06/28/19 Status: Ordered MiraLax oral powder for reconstitution = 17 Gm, By Mouth, Daily, PRN constipation. dissolve in water before taking Singaporean, # 527 Gm, 1 Refills, Maintenance, 05/08/20 16:24:00 EST, REC Powder, [facility]/pharmacy #1972, Partial fill upon patientrequest if the [...]
--- OUTSIDE RECORDS SUMMARY | 2022-11-11 23:56 | XMS_ITS | Continuity of Care Document ---
Author Name Unknown Organization [facility] Address Unknown Care Team Providers Care Press Leader Name Role Phone Che Fuller NP Primary Care Physician Encounter [facility] Date(s): 04/30/21 - 05/30/21 [facility] Allergies, Adverse Reactions, Alerts No Known [...] Comment: [09/05/2013] ORDERED BY RISSA MASON MD [facility] STOCK 5Admin Note: GIVEN VIS 07/15/05 6Admin Note: VIS Medications clonazePAM 1 mg oral tablet 1 TABLET BY MOUTH THREE TIMES A DAY NEEDED Start Date: 09/18/20 Status: Ordered docusate sodium 100 mg oral capsule 1 capsule = 100 mg, By Mouth, 2 times a day, PRN for constipation, Take daily for constipation Scottish, # 60 capsule, 2 Refills, Maintenance, 05/08/20 16:23:00 EST, Capsule, [facility]/pharmacy #1972, Partial fill upon patient request if the prescription i... Start Date: 05/08/20 Status: Ordered ferrous gluconate 324 mg (37.5 mg elemental iron) oral tablet 1 tablet = 324 mg, By Mouth, 2 times a day, For anemia. Take with food. Scottish., # 100 tablet, 2 Refills, Maintenance, 03/02/20 [...] leg and back pain. May cause drowsiness. Scottish., # 60 tablet, 2 Refills, Maintenance, 02/18/21 14:43:00 EDT, [facility], Partial fill upon patient request if [...] 0 Refills, Maintenance, 02/18/21 14:45:00 EDT, Film, [facility], Partial fill upon patient request if the pre... Start Date: 02/18/21 Status: Ordered meloxicam 7.5 mg oral tablet 1 tablet = 7.5 mg, By Mouth, Daily, # 30 tablet, 1 Refills, Maintenance, 06/28/19 10:23:00 EST, Tablet, [facility]/pharmacy #1972, 168, cm, 06/28/19 9:52:00 EST, Height, 75, kg, 06/28/19 9:52:00 EST, Dry Weight Start Date: 06/28/19 Status: Ordered MiraLax oral powder for reconstitution = 17 Gm, By Mouth, Daily, PRN constipation. dissolve in water before taking Scottish, # 527 Gm, 1 Refills, Maintenance, 05/08/20 16:24:00 EST, REC Powder, [facility]/pharmacy #1972, Partial fill upon patientrequest if the [...]
--- OUTSIDE RECORDS SUMMARY | 2022-11-11 23:56 | XMS_ITS | Continuity of Care Document ---
Author Name Unknown Organization [facility] Address [address] [place] [address]- Care Team Providers Care Grader Marker Name Role Phone Jonny BAUTISTA, Che Primary Care Physician Encounter [facility] Date(s): 05/08/20 - 06/07/20 [facility] [address] [place] [address]- Attending Physician: Admtr, Ar8 Allergies, Adverse Reactions, [...] Armenian., # 60 tablet, 2 Refills, Maintenance, 05/08/20 16:26:00 EST, [facility]/pharmacy #1972, Partial fill upon [...] Refills, Maintenance, 07/01/16 12:28:47, Tablet Start Date: 2/7/17 Status: Ordered lidocaine 5% topical ointment 1 [...] hrs before meals as needed for diarrhea. Armenian., # 100 capsule, Refills 0, Tot. Refills [...] one capsule daily 30 mins before breakfast. Armenian., # 30capsule, 3 Refills, Maintenance, 03/02/19 9:38:05 [...] Daily at bedtime, Take daily for constipation. Armenian. for 30 days, # 60 tablet, Refills 2, Tot. Refills 2, Acute, 08/06/20 16:24:00 EDT, 05/08/20 16:24:00 EST, Route to Pharmacy Electronically, [facility]/pharmacy #1972 Tabl... Start Date: 05/08/20 Stop Date: [...]
--- OUTSIDE RECORDS SUMMARY | 2022-11-11 23:56 | XMS_ITS | Continuity of Care Document ---
Author Name Unknown Organization [facility] ter Address [address] [place] [id number] Care Team Providers Care Family And Consumer Education Teacher Name Role Phone Jonny BAUTISTA, Che Primary Care Physician [phone] Encounter [facility] Date(s): 06/28/20 - 08/12/[address] [id number] Attending Physician: Che Fuller NP Admitting Physician: [...] VIS 06/26/2011 4Result Comment: [09/05/2013] ORDERED BY IRSSA MASON MD [facility] 5Admin Note: GIVEN VIS [...] constipation, Take daily for constipation Guyanese, # 60 capsule, 2 Refills, Maintenance, 05/08/20 [...] leg and back pain. May cause drowsiness. Guyanese., # 60 tablet, 2 Refills, Maintenance, 05/08/20 16:26:00 EST, [facility]/pharmacy #[id number], Partial fill upon [...] hrs before meals as needed for diarrhea. Guyanese., # 100 capsule, Refills 0, Tot. Refills 0, Maintenance, 04/13/18 10:22:05 EST, Instructions Replace Required Details, Route to Pharmacy Electronically, [id number]... Start Date: 04/13/18 Status: Ordered meloxicam 7.5 mg oral tablet 1 tablet = 7.5 mg, By Mouth, Daily, # 30 tablet, 1 Refills, Maintenance, 06/28/19 10:23:00 EST, Tablet, [facility]/pharmacy #[id number], 168, cm, 06/28/19 9:52:00 EST, Height, 75, kg, 06/28/19 9:52:00 EST, Dry Weight Start Date: 06/28/19 Status: Ordered MiraLax oral powder for reconstitution = 17 Gm, By Mouth, Daily, PRN constipation. dissolve in water before taking Guyanese, # 527 Gm, 1 Refills, Maintenance, 05/08/20 16:24:00 EST, REC Powder, [facility] #[id number], Partial fill upon patientrequest if the prescription is for a schedule II o... Start Date: 05/08/20 Status: Ordered omeprazole 20 mg oral enteric coated capsule 1 capsule = 20 mg, By Mouth, Daily, Take one capsule daily 30 mins before breakfast. Guyanese., # 30capsule, 3 Refills, Maintenance, 03/02/19 9:38:05 [...]
[2022-11-12 00:21] VITALS: BP 113/70; PULSE 78; RESP 16; TEMP 36.4; O2SAT 99
[2022-11-12] MEDS: clonazePAM 1 MG TABLET PO (01:16)
[2022-11-12] MEDS: Cyclobenzaprine HCl 10 MG TABLET PO (01:17)
== END 2022-11-12 01:23 | disposition home or self-care (01) ==
PROVIDERS: Emergency Provider Internal Medicine
DX: M54.42 Lumbago with sciatica, left side (principal); M79.10 Myalgia, unspecified site
CPT/HCPCS: 99283; 99284